=== PATIENT | male | born 1975 | race Caucasian/White ===

== ENCOUNTER 2018-10-31 19:41 | Inpatient (IN) | payer OTHER ==
[2018-10-31 19:49] VITALS: BMI 35.5
--- NOTE | 2018-10-31 21:15 | PDOC ---
History of Present Illness - General Chief Complaint: Wound Stated Complaint: Wound ON LEG Time Seen by Provider: 10/31/18 21:09 - History of Present Illness Initial Comments: 10/31/18 22:01 The patient is a 43 year old male with a history of asthma who presents for evaluation of lower extremity infection. The patient reports that he had a rash and reaction on thanksgiving with an extremely itchy rash at that time. He notes that he broke skin with the itching and since then has been having worsening redness and swelling to his bilateral lower extremities. He presented to an outside ED on 10/26/18 and was prescribed augmentin for a presumed cellulitis, however notes worsening symptoms despite antibiotic use prompting his presentation to the ED for further evaluation. He otherwise denies fevers, chills, SOB, chest pain, nausea, vomiting, abdominal pain, or changes with urination or bowel movements. Past History - Past Medical History Allergies/Adverse Reactions: Allergies Allergy/AdvReac Type Severity Reaction Status Date / Time shellfish derived Allergy Verified 10/31/18 19:49 Home Medications: Ambulatory Orders Amoxicillin/Potassium Clav [Amox-Clav 875-125 mg Tablet] 1 each PO Q12H Diphenhydramine HCl [Benadryl -] 25 mg PO Q8H PRN 10/31/18 Fluoxetine HCl [Prozac -] 20 mg PO DAILY 10/31/18 Risperidone [Risperdal] 2 mg PO HS 10/31/18 Albuterol Sulfate Inhaler - [Ventolin Hfa Inhaler -] 90 mcg IH PRN PRN 11/01/18 Fenofibrate Nanocrystallized [Fenofibrate] 145 mg PO DAILY 11/01/18 Asthma: Yes COPD: No - Surgical History Cholecystectomy: Yes (GALL STONES REMOVED) - Suicide/Smoking/Psychosocial Hx Smoking Status: No Smoking History: Never smoked Number of Cigarettes Smoked Daily: 0 Review of Systems - Review of Systems Comments:: 10/31/18 22:03 Constitutional: No fevers, chills, fatigue, malaise HEENT: No Rhinorrhea, nasal congestion, visual changes Cardiovascular: No chest pain, syncope, palpitations, lightheadedness Respiratory: No Cough, SOB, Hemoptysis, Gastrointestinal: No Abdominal pain, Nausea, Vomiting, Constipation, Diarrhea, Melena Genitourinary: No Dysuria, Frequency, Urgency, Hesitancy, Hematuria, Flank pain Musculoskeletal: No Myalgia, arthralgia Skin: Rashes, Itching, Redness, Lower extremity swelling. No bruising, pallor Neurologic: No Headache, Dizziness, Numbness, Weakness, or Tingling Psychiatric: No Hallucinations. No SI or HI *Physical Exam - Vital Signs Last Vital Signs Temp Pulse Resp BP Pulse Ox 97.6 F 99 H 18 141/74 97 10/31/18 19:45 10/31/18 19:45 10/31/18 19:45 10/31/18 19:45 10/31/18 19:45 - Physical Exam Comments: 10/31/18 22:04 General Appearance: Nourished. No Apparent Distress HEENT: No Pharyngeal Erythema, Tonsillar Exudate, Tonsillar Erythema Neck: No Cervical Lymphadenopathy Respiratory/Chest: Lungs Clear, Normal Breath Sounds. No Crackles, Rales, Rhonchi, Wheezing Cardiovascular: Regular Rhythm, Regular Rate. No Murmur, Gallops, Rubs Gastrointestinal/Abdominal: Normal Bowel Sounds, Soft. No Guarding, Rebound, Tenderness Musculoskeletal: No CVA Tenderness Extremity: Bilateral 4+ pitting edema in the lower extremities with noted erythema and skin cracking. Normal Capillary Refill Integumentary: Normal Color, Dry, Warm Neurologic: Fully Oriented, Alert, Normal Mood/Affect, Normal Response, Moderate Sedation - Procedure Monitoring Vital Signs: Procedure Monitoring Vital Signs Temperature 97.6 F 10/31/18 19:45 Pulse Rate 99 H 10/31/18 19:45 Respiratory Rate 18 10/31/18 19:45 Blood Pressure 141/74 10/31/18 19:45 O2 Sat by Pulse Oximetry (%) 97 10/31/18 19:45 ED Treatment Course - LABORATORY CBC & Chemistry Diagram: 11/01/18 06:15 11/01/18 06:15 Medical Decision Making - Medical Decision Making 10/31/18 22:04 The patient is a 43 year old male with a history of asthma who presents for evaluation of lower extremity infection. Differential includes but is not limited to: Cellulitis, Wound Infections, DVT, Infections, Metabolic Derangement. Given the patient's history and physical exam, we will obtain a cbc, cmp, lactate, blood cultures, DVT US, ekg to evaluate further. It is likely the patient's symptoms are due to a cellulitis that has failed outpatient management. We will treat the patient with clindamycin. We will continue to monitor and reassess while here in the ED. 10/31/18 23:11 CBC, CMP, lactate are unremarkable. We discussed the case with the admitting team who accepted the patient for admission. *DC/Admit/Observation/Transfer Diagnosis at time of Disposition: Cellulitis Qualifiers: Site of cellulitis: unspecified site Qualified Code(s): L03.90 - Cellulitis, unspecified - Discharge Dispostion Condition at time of disposition: Stable Decision to Admit order: Yes - Referrals - Patient Instructions - Post Discharge Activity
[2018-10-31] MEDS ORDERED: CLINDAMYCIN 600MG PREMIX IVPB 600 MG/50 ML BAG IVPB ONE ×2 (21:25→22:09)
[2018-10-31 22:29] LABS: BASO % 1.1 % (0-2.0); EOS % 5.7 % (0-4.5); HEMOGLOBIN 13.7 GM/dL (11.7-16.9); MCH 29.3 pg (25.7-33.7); MCHC 34.4 g/dl (32.0-35.9); MEAN CELL VOLUME 85.1 fl (80-96); MONO % 7.4 % (3.8-10.2); NEUT % 67.8 % (42.8-82.8); PLATELET COUNT 223 K/MM3 (134-434); RDW 14.1 % (11.9-15.9); WHITE BLOOD COUNT 7.7 K/mm3 (4.0-10.0)
--- NOTE | 2018-10-31 22:38 | PDOC ---
Attending Attestation - Resident Resident Name: Emerson Fuller - ED Attending Attestation I have performed the following: I have examined & evaluated the patient, The case was reviewed & discussed with the resident, I agree w/resident's findings & plan, Exceptions are as noted - HPI HPI: 10/31/18 22:39 43 M with h/o asthma presenting with bilateral lower extremity itching and redness. Pt states that he first noticed itching in his legs and arms about 3 weeks ago during Thanksgiving. He reports scratching it and subsequently developing redness in both legs. Pt was seen at another ED and started on augmentin for cellulitis. Pt has been taking the augmentin for 4 days and reports no improvement. Today, pt notes that his skin began to peel. Pt denies F /C. Denies lesions in his mouth, on his palms or soles. Notes that he has allergies to shellfish but has not eaten any lately. Denies any drug allergies. Is not on any other meds besides the augmentin. - Physicial Exam PE: 10/31/18 22:43 "GENERAL: Awake, alert, and fully oriented, in no acute distress. HEAD: No signs of trauma EYES: PERRLA, EOMI, sclera anicteric, conjunctiva clear ENT: Auricles normal inspection, hearing grossly normal, nares patent, oropharynx clear without exudates. Moist mucosa NECK: Nontender, no stepoffs, Normal ROM, supple, no lymphadenopathy, JVD, or masses LUNGS: Breath sounds equal, clear to auscultation bilaterally. No wheezes, and no crackles HEART: Regular rate and rhythm, normal S1 and S2, no murmurs, rubs or gallops ABDOMEN: Soft, nontender, normoactive bowel sounds. No guarding, no rebound. No masses EXTREMITIES: Normal range of motion, no edema. No clubbing or cyanosis. No cords, erythema, or tenderness NEUROLOGICAL: Cranial nerves II through XII intact. 5/5 strength and sensation in all extremities, Normal speech, normal gait, normal cerebellar function SKIN: + desquamating rash to BLE with erythema and warmth, no palmar involvement , no oral mucosal lesions - Medical Decision Making 10/31/18 22:44 43 M with BLE rash, now with desquamation. Possible contact/allergic dermatitis now with superinfection. Desquamation started over past 48 hours after pt started taking augmentin. Consider SJS, though rash is largely localized to legs. No oral mucosal or palmar lesions. Possible ?erythrodermic psoriasis. - Labs - Stop augmentin - IV clinda - Admit obs - derm consult
[2018-10-31 23:05] LABS: ALBUMIN 3.6 g/dl (3.4-5.0); ALK PHOS 116 U/L (45-117); ANION GAP 6 MMOL/L (8-16); BILIRUBIN,TOTAL 0.2 mg/dL (0.2-1); BLOOD UREA NITROGEN 18 mg/dL (7-18); CALCIUM 8.4 mg/dL (8.5-10.1); CHLORIDE 106 mmol/L (98-107); CO2 28 mmol/L (21-32); CREATININE 1.1 mg/dL (0.55-1.3); GLUCOSE,RANDOM 92 mg/dL (74-106); POTASSIUM 4.1 mmol/L (3.5-5.1); SGOT/AST 27 U/L (15-37); SGPT/ALT 41 U/L (13-61); SODIUM 140 mmol/L (136-145); TOT PROT 7.1 g/dl (6.4-8.2)
--- NOTE | 2018-11-01 00:51 | PN ---
Teaching Attending Note Name of Resident: Layla Santana ATTENDING PHYSICIAN STATEMENT I saw and evaluated the patient. I reviewed the resident's note and discussed the case with the resident. I agree with the resident's findings and plan as documented. SUBJECTIVE: Patient is a 43 year old man with remote histroy of depression, kidney stones and asthma who presents with bilateral lower extremity itching and redness. He first noticed itching in his legs and arms about 3 weeks ago during Thanksgiving. He reports scratching it and subsequently developing redness in both legs. Was seen at another ED and started on Augmentin for cellulitis. He has been taking the Augmentin for 4 days and reports no improvement. Today, he notes that his skin began to peel. He denies fever of chills, lesions in his mouth, on his palms or soles. Notes that he has allergies to shellfish but has not eaten any lately. Denies any known drug allergies. Is not on any other medications besides Augmentin. OBJECTIVE: Alert Vital Signs Period Temp Pulse Resp BP Sys/Barr Pulse Ox Last 24 Hr 97.6 F 99 18 141/74 97-97 HEENT: No Jaundice, eye redness or discharge, PERRLA, EOMI. Normocephalic, atraumatic. External ears are normal and hearing is grossly intact. No nasal discharge. Neck: Supple, nontender. No palpable adenopathy or thyromegaly. No JVD Chest: Good effort. Clear to auscultation and percussion. Heart: Regular. No S3, rub or murmur Abdomen: Not distended, soft, nontender and no HSM. No rebound or guarding. Normoactive bowel sounds. Ext: Peripheral pulses intact. Leg edema. Skin: Maculopapular rash in legs, arms and abdomen. More pronounced and desquamating in LE with erythema and warmth. No palmar involvement, no oral mucosal lesions. Neuro: Alert. Oriented x3. CN 2-12 grossly intact. Sensation grossly intact in all four extremities and DTR are symmetric. Home Medications Medication Instructions Recorded Amoxicillin/Potassium Clav 1 each PO Q12H 10/31/18 [Amox-Clav 875-125 mg Tablet] Diphenhydramine HCl [Benadryl -] 25 mg PO Q8H PRN 10/31/18 Fluoxetine HCl [Prozac -] 20 mg PO DAILY 10/31/18 Risperidone [Risperdal] 2 mg PO HS 10/31/18 Abnormal Lab Results 10/31/18 10/31/18 22:00 22:00 Eosinophils % 5.7 H D Anion Gap 6 L Calcium 8.4 L ASSESSMENT AND PLAN: 1. Cellulitis - Likely had an allergic dermatitis that is now complicated by a superinfection that failed Augmentin therapy. Etiology of allergic reaction unclear. Will get a leg doppler and treat with iv Vancomycin and consult ID and Dermatology. Counseled to discontinue any new bath soaps, body lotion, laundry detergent or alternative medicine products. 2. Obesity - Will provide patient all the necessary assistance, counseling and positive reinforcement to facilitate weight loss. Consult electrical tests supervisor. 3. DVT prophylaxis - Lovenox 40 mg SQ q 24 hours. 4. Advance directives - Full code
[2018-11-01] MEDS ORDERED: VANCOMYCIN 1,500 MG in DEXTROSE 5%-WATER - 500 ML IVPB ONE (02:00)
[2018-11-01] MEDS ORDERED: ALBUTEROL SO4 0.083% IH SOL 2.5 MG/3 ML VIAL.NEB. NEB PRN (02:07)
[2018-11-01] MEDS ORDERED: ACETAMINOPHEN 325 MG TABLET (FP) PO PRN (02:07)
--- NOTE | 2018-11-01 02:10 | HP ---
CHIEF COMPLAINT: LE Swelling + Erythema PCP: Nuvia Velasquez HISTORY OF PRESENT ILLNESS: 43 y/o M with PMhx of Asthma presents with B/L LE Swelling accompanied by erythema. Patient used a new soap while showering on giving, after which he went to sleep. He was awoken sometime later due to itching over his b/l LE. He says a rash then broke out and spread over his lower extremities, Abdomen, thorax and partly over his upper extremities. Patient mentions scratching his rash and breaking skin. Initially the rash was accompanied by some clear drainage however it has subsided. Patient has never had this before. 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 He has tried a cream of unknown name. Additionally, he has tried Augmentin for the past 4 days without any relief. Patient says the erythema and itching have worsened since onset. Denies any recent trauma, new infestations or new pets. Has not tried any new laundry detergents, new body jewelry or new clothes. No medication changes except for the cream or Augmentin. Denies any accompanying fevers, chills, chest pain, SOB, nausea, vomiting, diarrhea, constipation. ER course was notable for: (1) Clindamycin (2) Blood cx pending (3) LE DUPLEX Recent Travel: Denies PAST MEDICAL HISTORY: Asthma PAST SURGICAL HISTORY: CCY Social History: Smoking: Denies Alcohol: Denies Drugs: Denies Occupation: Disability Ambulation: Without assistance Family History: Mother: Psychiatric hx, DM, HLD, HTN Father: Asthma, Cardiac hx Allergies shellfish derived Allergy (Verified 10/31/18 19:49) HOME MEDICATIONS: Home Medications Medication Instructions Recorded Amoxicillin/Potassium Clav 1 each PO Q12H 10/31/18 [Amox-Clav 875-125 mg Tablet] Diphenhydramine HCl [Benadryl -] 25 mg PO Q8H PRN 10/31/18 Fluoxetine HCl [Prozac -] 20 mg PO DAILY 10/31/18 Risperidone [Risperdal] 2 mg PO HS 10/31/18 REVIEW OF SYSTEMS As per HPI PHYSICAL EXAMINATION Vital Signs - 24 hr 10/31/18 10/31/18 19:45 22:14 Temperature 97.6 F Pulse Rate 99 H Respiratory 18 Rate Blood Pressure 141/74 O2 Sat by Pulse 97 97 Oximetry (%) GENERAL: A&Ox3, NAD HEAD: NCAT EYES: PERRL, EOMI, No obvious occular lesions EARS, NOSE, THROAT: Oropharynx clear without exudates. Moist mucous membranes. No oral mucosa lesions NECK: No JVD LUNGS: Breath sounds equal, clear to auscultation bilaterally. No wheezes HEART: Regular rate and rhythm, normal S1 and S2 without murmur ABDOMEN: Soft, nontender, not distended, + bowel sounds, no guarding MUSCULOSKELETAL: No CVA tenderness. EXTREMITIES: 2+ pulses, No calf tenderness. 2+ pitting edema. NEUROLOGICAL: Cranial nerves II-XII intact. Normal speech. L4-S1 gross sensation intact b/l. 5/5 muscle strength to Hip Flexion, Knee flexion/extension , Dorsiflexion, Plantarflexion SKIN: Diffuse Macularpappular rash over the medial upper extremity b/l, Circumfrential lower extremity b/l. Warmth present over LE rash accompanied by erythema, scaly skin with excoriation. Laboratory Results - last 24 hr 10/31/18 10/31/18 10/31/18 22:00 22:00 22:00 WBC 7.7 RBC 4.70 Hgb 13.7 Hct 40.0 MCV 85.1 MCH 29.3 MCHC 34.4 RDW 14.1 Plt Count 223 MPV 9.0 D Absolute Neuts (auto) 5.2 Neutrophils % 67.8 Lymphocytes % 18.0 D Monocytes % 7.4 Eosinophils % 5.7 H D Basophils % 1.1 Nucleated RBC % 0 Sodium 140 Potassium 4.1 Chloride 106 Carbon Dioxide 28 Anion Gap 6 L BUN 18 Creatinine 1.1 Creat Clearance w eGFR > 60 Random Glucose 92 Lactic Acid 1.9 Calcium 8.4 L Total Bilirubin 0.2 AST 27 ALT 41 Alkaline Phosphatase 116 Total Protein 7.1 Albumin 3.6 ASSESSMENT/PLAN: 43 y/o M with PMhx of Asthma presents with B/L LE Swelling + erythema. Patient sx's have worsened since onset, and patient mentions he has not improved since starting Augmentin. #LE Swelling + Erythema -Likely due to cellulitis; Still consider allergic reaction, Less likely Contact dermatitis, DVT -Blood Cx, LE DUPLEX pending -Nasal MRSA Swab pending -Received 1 dose Clindamycin in ED -Ordered Vancomycin 1500mg Daily (15mg X 100kg) -ID (Dr. Juan) Consulted -Can Consider Dermatology consult for possible allergic dermatitis now complicated by a superimposed infection #Hx of Asthma -Currently uses an inhaler but unable to clarify name or dosage -Albuterol PRN for now; Will need Med Rec to determine home inhaler (?Ventolin) dose #FEN -PO Fluids -Lytes wnl -Regular diet #PPx -DVT: Lovenox Dispo: Admitted to Med-Surg, Will need Med Rec Visit type - Emergency Visit Emergency Visit: Yes ED Registration Date: 11/01/18 Care time: The patient presented to the Emergency Department on the above date and was hospitalized for further evaluation of their emergent condition. - New Patient This patient is new to me today: Yes Date on this admission: 11/01/18 - Critical Care Critical Care patient: No
[2018-11-01 07:10] LABS: BASO % 0.6 % (0-2.0); HEMATOCRIT 38.7 % (35.4-49); HEMOGLOBIN 13.4 GM/dL (11.7-16.9); LYMPH % 17.5 % (8-40); MCH 29.4 pg (25.7-33.7); MCHC 34.6 g/dl (32.0-35.9); MEAN CELL VOLUME 84.9 fl (80-96); MEAN PLT VOLUME 8.8 fl (7.5-11.1); MONO % 8.5 % (3.8-10.2); NEUT % 67.4 % (42.8-82.8); PLATELET COUNT 202 K/MM3 (134-434); RBC 4.56 M/mm3 (4.00-5.60); RDW 14.1 % (11.9-15.9); WHITE BLOOD COUNT 8.9 K/mm3 (4.0-10.0)
[2018-11-01 07:52] LABS: ALBUMIN 3.1 g/dl (3.4-5.0); ALK PHOS 93 U/L (45-117); ANION GAP 5 MMOL/L (8-16); BILIRUBIN,TOTAL 0.4 mg/dL (0.2-1); BLOOD UREA NITROGEN 14 mg/dL (7-18); CALCIUM 7.8 mg/dL (8.5-10.1); CHLORIDE 104 mmol/L (98-107); CO2 28 mmol/L (21-32); CREATININE 1.1 mg/dL (0.55-1.3); GLUCOSE,RANDOM 91 mg/dL (74-106); MAGNESIUM 2.2 mg/dL (1.8-2.4); PHOSPHOROUS 3.3 mg/dL (2.5-4.9); POTASSIUM 3.6 mmol/L (3.5-5.1); SGOT/AST 21 U/L (15-37); SGPT/ALT 40 U/L (13-61); SODIUM 138 mmol/L (136-145); TOT PROT 6.5 g/dl (6.4-8.2)
[2018-11-01] MEDS ORDERED: PIPERACILLIN/TAZOBACTAM 3.375 GM VIAL IVPB ONE ×2 (09:53→17:28)
[2018-11-01] MEDS ORDERED: DEXTROSE 5%-WATER - 50 ML IVPB ONE ×2 (09:53→17:29)
[2018-11-01] MEDS: PIPERACILLIN/TAZOB 3.375 GM 3.375 GM in DEXTROSE 5%-WATER - 50 ML IVPB SCH ×2 (09:57→17:41)
[2018-11-01] MEDS: ENOXAPARIN NA (PORCINE) 40 MG/0.4 ML DISP.SYRIN SQ SCH (09:58)
--- NOTE | 2018-11-01 12:00 | PN ---
Teaching Attending Note Name of Resident: Alma Kathleen ATTENDING PHYSICIAN STATEMENT I saw and evaluated the patient. I reviewed the resident's note and discussed the case with the resident. I agree with the resident's findings and plan as documented. SUBJECTIVE: No fever or chills. He feels his lower extremities are better today . he has been using a cream ( ? name) . no fever at home . He has not used any new medications. Around thanksgiving he had a generalized rash on extremities, and trunk, with no mucosal/palm/sole involvement. the uper extremities and trunk rash improved but not the legs. he was in ER few days ago and was prescribed augmenting for LE cellulites . it did not make any difference. OBJECTIVE: NAD CV: RRR, no MRG Lungs: CTAB Ext: erythema, dry scaly skin on legs and thighs. increased warmth, edema . macuopapular rash . No drainage . Skin: LE as above . dry scaly skin on trunk and upper extremities . fading macular rash . no rash on face, palms or soles. no mucosal lesions ASSESSMENT AND PLAN: 43 y/o man with h/o depression , and asthma, and nephrolithiasis who presented with presented with edema , erythema, in LE . 1- LE edema , and erythema. the patient had allergic reaction to LE with possible superimposed infection .No DVT on US - Id eval pending. will d/w him - if Abx are indicated, will discuss options - follow blood cx 2- H/o Asthma, will cont albuterol 3- Psych h/o : will confirm and continue home meds 4- DVT PX
--- NOTE | 2018-11-01 12:43 | PN ---
Physical Exam: SUBJECTIVE: Patient seen and examined at bedside. Pt denies any pain or itching at all. Rash on b/l upper extremities seem to be improving. Pt denies oral lesions, chest pain, sob, or hx of skin disease. He states symptoms started after using Dove soap on Thanksgiving, and has had this persistent rash. OBJECTIVE: Vital Signs Temperature 97.4 F L 11/01/18 10:00 Pulse Rate 86 11/01/18 10:00 Respiratory Rate 16 11/01/18 10:00 Blood Pressure 122/69 11/01/18 10:00 O2 Sat by Pulse Oximetry (%) 99 11/01/18 06:00 GENERAL: AAOx3, NAD HEENT: AT/NC. EOMI. INOCENCIA. Moist mucus membranes. NECK: No JVD LUNGS: CTA B/L HEART: RRR. Normal S1, S2. ABDOMEN: Soft, NT/ND. +BS in all 4Qs. MUSCULOSKELETAL: No CVA tenderness. EXTREMITIES: 2+ pulses, No calf tenderness. 2+ pitting edema. NEUROLOGICAL: Cranial nerves II-XII intact. Normal speech. L4-S1 gross sensation intact b/l. 5/5 muscle strength to Hip Flexion, Knee flexion/extension , Dorsiflexion, Plantarflexion SKIN: Diffuse Maculopapular rash over the medial upper extremity b/l, Circumferential lower extremity b/l. Warmth present over LE rash accompanied by erythema, scaly skin with excoriation. CBCD WBC 8.9 K/mm3 (4.0-10.0) 11/01/18 06:15 RBC 4.56 M/mm3 (4.00-5.60) 11/01/18 06:15 Hgb 13.4 GM/dL (11.7-16.9) 11/01/18 06:15 Hct 38.7 % (35.4-49) 11/01/18 06:15 MCV 84.9 fl (80-96) 11/01/18 06:15 MCHC 34.6 g/dl (32.0-35.9) 11/01/18 06:15 RDW 14.1 % (11.9-15.9) 11/01/18 06:15 Plt Count 202 K/MM3 (134-434) 11/01/18 06:15 MPV 8.8 fl (7.5-11.1) 11/01/18 06:15 CMP Sodium 138 mmol/L (136-145) 11/01/18 06:15 Potassium 3.6 mmol/L (3.5-5.1) 11/01/18 06:15 Chloride 104 mmol/L (98-107) 11/01/18 06:15 Carbon Dioxide 28 mmol/L (21-32) 11/01/18 06:15 Anion Gap 5 MMOL/L (8-16) L 11/01/18 06:15 BUN 14 mg/dL (7-18) 11/01/18 06:15 Creatinine 1.1 mg/dL (0.55-1.3) 11/01/18 06:15 Creat Clearance w eGFR > 60 (>60) 11/01/18 06:15 Calcium 7.8 mg/dL (8.5-10.1) L 11/01/18 06:15 Total Bilirubin 0.4 mg/dL (0.2-1) 11/01/18 06:15 AST 21 U/L (15-37) 11/01/18 06:15 ALT 40 U/L (13-61) 11/01/18 06:15 Alkaline Phosphatase 93 U/L (45-117) 11/01/18 06:15 Total Protein 6.5 g/dl (6.4-8.2) 11/01/18 06:15 Albumin 3.1 g/dl (3.4-5.0) L 11/01/18 06:15 Active Medications Acetaminophen (Tylenol -) 650 mg PO Q6H PRN PRN Reason: Fever Or Pain Level 1-5 Albuterol Sulfate (Ventolin 0.083% Nebulizer Soln -) 1 amp NEB Q4H PRN PRN Reason: SHORT OF BREATH/WHEEZING Enoxaparin Sodium (Lovenox -) 40 mg SQ DAILY ESTRELLA Last Admin: 11/01/18 09:58 Dose: 40 mg Vancomycin HCl 1,500 mg/ (Dextrose) 500 mls @ 250 mls/hr IVPB Q24H ESTRELLA; Protocol Piperacillin Sod/Tazobactam (Sod 3.375 gm/ Dextrose) 50 mls @ 100 mls/hr IVPB Q8H-IV ESTRELLA; Protocol Last Admin: 11/01/18 09:57 Dose: 100 mls/hr CONSULTS ID- Dr. Juan IMAGING: * Doppler LE: No evidence of DVT. ASSESSMENT/PLAN: 43M w/ pmhx of Asthma presents with B/L LE Swelling + erythema. Patient sx's have worsened since onset, and patient mentions he has not improved since starting Augmentin. #LE Swelling + Erythema; cellulitis vs. rash due to allergic reaction. -Pt seems to have improving maculopapular rash on b/l arms after given dose of Clindamycin and Vanc. This could possibly be a sign of infection as source of rash, but will d/w ID. Rash still persists on b/l LE. If cellulitis less likely as evaluated by ID, then consider derm consult for possible allergic dermatitis potentially complicated by a superimposed infection. -BCx pending -Nasal swab for MRSA pending -Doppler showed no acute DVT -Nasal MRSA Swab pending -Per ID, Zosyn 3.375 gm (started 11/01; previously given Clindamycin, Vancomycin ) #Hx of Asthma -Ventolin PRN #Hx of psychiatric illness; will verify with family psychiatric hx Cont home meds: -Risperdal 2 mg PO HS -Prozac 20 mg PO QD #FEN -PO Fluids -Lytes wnl -Regular diet #PPx -DVT: Lovenox 40 mg SQ QD dispo -cont to monitor on med-surg -meds reconciled Visit type - Emergency Visit Emergency Visit: Yes ED Registration Date: 11/01/18 Care time: The patient presented to the Emergency Department on the above date and was hospitalized for further evaluation of their emergent condition. - New Patient This patient is new to me today: Yes Date on this admission: 11/01/18 - Critical Care Critical Care patient: No
[2018-11-01] MEDS ORDERED: PT OWN MED DRAWER 7, Y5N ONE (15:55)
[2018-11-01] MEDS: FLUoxetine HCL 20 MG CAPSULE (FP) PO SCH (15:56)
--- NOTE | 2018-11-01 16:27 | EKG ---
Test Reason : Blood Pressure : / mmHG Vent. Rate : 088 BPM Atrial Rate : 088 BPM P-R Int : 144 ms QRS Dur : 100 ms QT Int : 378 ms P-R-T Axes : 066 050 037 degrees QTc Int : 457 ms NORMAL SINUS RHYTHM POSSIBLE LEFT ATRIAL ENLARGEMENT BORDERLINE ECG Confirmed by MD DEREK, SHAHANA ([id number]) on 11/01/2018 4:26:57 PM Referred By: Confirmed By:SHAHANA REED MD
--- NOTE | 2018-11-01 17:44 | CON.ID ---
Consult Consult Specialty:: infectious diseases Reason for Consultation:: b/l leg cellulitis - History of Present Illness Chief Complaint: swelling and redness of the legs History of Present Illness: 43 y/o M with PMhx of Asthma presents with B/L LE Swelling accompanied by erythema. Patient used a new soap while showering on giving, after which he went to sleep. He was awoken sometime later due to itching over his b/l LE. He says a rash then broke out and spread over his lower extremities, Abdomen, thorax and partly over his upper extremities. Patient mentions scratching his rash and breaking skin. Initially the rash was accompanied by some clear drainage however it has subsided. Patient has never had this before. He has visited his PCP's office 2x since, an [employer] [facility]. He has tried a cream of unknown name. Additionally, he has tried Augmentin for the past 4 days without any relief. Patient says the erythema and itching have worsened since onset. also multiple flakes noted on the skin family in the room - History Source History Provided By: Patient, Family Member Limitations to Obtaining History: No Limitations - Alcohol/Substance Use Hx Alcohol Use: No - Smoking History Smoking history: Never smoked Aproximately how many cigarettes per day: 0 Home Medications - Allergies Allergies/Adverse Reactions: Allergies Allergy/AdvReac Type Severity Reaction Status Date / Time shellfish derived Allergy Verified 10/31/18 19:49 - Home Medications Home Medications: Ambulatory Orders Amoxicillin/Potassium Clav [Amox-Clav 875-125 mg Tablet] 1 each PO Q12H Diphenhydramine HCl [Benadryl -] 25 mg PO Q8H PRN 10/31/18 Fluoxetine HCl [Prozac -] 20 mg PO DAILY 10/31/18 Risperidone [Risperdal] 2 mg PO HS 10/31/18 Albuterol Sulfate Inhaler - [Ventolin Hfa Inhaler -] 90 mcg IH PRN PRN 11/01/18 Fenofibrate Nanocrystallized [Fenofibrate] 145 mg PO DAILY 11/01/18 Review of Systems - Review of Systems Constitutional: reports: No Symptoms Eyes: reports: No Symptoms HENT: reports: No Symptoms Neck: reports: No Symptoms Cardiovascular: reports: No Symptoms Respiratory: reports: No Symptoms Gastrointestinal: reports: No Symptoms Genitourinary: reports: No Symptoms Musculoskeletal: reports: No Symptoms Integumentary: reports: Change in Color, Erythema Neurological: reports: No Symptoms Endocrine: reports: No Symptoms Hematology/Lymphatic: reports: No Symptoms Psychiatric: reports: No Symptoms Physical Exam Vital Signs: Vital Signs Temperature 98.3 F 11/01/18 16:46 Pulse Rate 88 11/01/18 16:46 Respiratory Rate 20 11/01/18 16:46 Blood Pressure 123/69 11/01/18 16:46 O2 Sat by Pulse Oximetry (%) 99 11/01/18 09:00 Constitutional: Yes: Well Nourished, No Distress, Calm Eyes: Yes: Conjunctiva Clear Neck: Yes: Supple, Trachea Midline Cardiovascular: Yes: Regular Rate and Rhythm Respiratory: Yes: Regular, CTA Bilaterally Gastrointestinal: Yes: Normal Bowel Sounds, Soft Musculoskeletal: Yes: WNL Extremities: Yes: Erythema, Other Edema: LLE: 2+, RLE: 2+ Neurological: Yes: Alert, Oriented Psychiatric: Yes: Alert, Oriented Labs: CBC, BMP 11/01/18 06:15 11/01/18 06:15 Imaging - Results Other: Report Reviewed, Image Reviewed Assessment/Plan edema b/l legs erythema b/l legs cellulitis asthma plan will start patient on abx work up for edema of the legs dermatology to see the patient monitor erythema of the legs patient needs to be worked up for non infectious causes aslo for the leg swelling and the rash which he has had discussed with the team
[2018-11-01] MEDS: risperiDONE 1 MG TABLET (FP) PO SCH (21:07)
[2018-11-02] MEDS ORDERED: DEXTROSE 5%-WATER - 50 ML IVPB ONE ×3 (01:34→17:41)
[2018-11-02] MEDS ORDERED: PIPERACILLIN/TAZOBACTAM 3.375 GM VIAL IVPB ONE ×3 (01:34→17:41)
[2018-11-02] MEDS: PIPERACILLIN/TAZOB 3.375 GM 3.375 GM in DEXTROSE 5%-WATER - 50 ML IVPB SCH ×3 (01:44→17:59)
[2018-11-02] MEDS ORDERED: VANCOMYCIN 1,500 MG in DEXTROSE 5%-WATER - 500 ML IVPB SCH (01:45)
--- NOTE | 2018-11-02 08:16 | PN ---
Teaching Attending Note Name of Resident: Alaina Vallejo ATTENDING PHYSICIAN STATEMENT I saw and evaluated the patient. I reviewed the resident's note and discussed the case with the resident. I agree with the resident's findings and plan as documented. SUBJECTIVE: Patient is feeling better with no acute distress, No fever or chills, no shortness of breath. As per patients improving. OBJECTIVE: Vital Signs Temperature 97.4 F L 11/02/18 06:29 Pulse Rate 67 11/02/18 06:29 Respiratory Rate 20 11/02/18 06:29 Blood Pressure 109/68 11/02/18 06:29 O2 Sat by Pulse Oximetry (%) 97 11/01/18 21:00 GENERAL: AAOx3, NAD HEENT: AT/NC. EOMI. INOCENCIA. Moist mucus membranes. NECK: No JVD, LUNGS: CTA B/L HEART: RRR. Normal S1, S2. ABDOMEN: Soft, NT/ND. +BS in all 4Qs. MUSCULOSKELETAL: No CVA tenderness. EXTREMITIES: 2+ pulses, No calf tenderness. 2+ pitting edema. NEUROLOGICAL: Cranial nerves II-XII intact. SKIN: Diffuse Maculopapular rash Lower extremities. improving. CBCD WBC 8.9 K/mm3 (4.0-10.0) 11/01/18 06:15 RBC 4.56 M/mm3 (4.00-5.60) 11/01/18 06:15 Hgb 13.4 GM/dL (11.7-16.9) 11/01/18 06:15 Hct 38.7 % (35.4-49) 11/01/18 06:15 MCV 84.9 fl (80-96) 11/01/18 06:15 MCHC 34.6 g/dl (32.0-35.9) 11/01/18 06:15 RDW 14.1 % (11.9-15.9) 11/01/18 06:15 Plt Count 202 K/MM3 (134-434) 11/01/18 06:15 MPV 8.8 fl (7.5-11.1) 11/01/18 06:15 CMP Sodium 138 mmol/L (136-145) 11/01/18 06:15 Potassium 3.6 mmol/L (3.5-5.1) 12/18/18 06:15 Chloride 104 mmol/L (98-107) 11/01/18 06:15 Carbon Dioxide 28 mmol/L (21-32) 11/01/18 06:15 Anion Gap 5 MMOL/L (8-16) L 11/01/18 06:15 BUN 14 mg/dL (7-18) 11/01/18 06:15 Creatinine 1.1 mg/dL (0.55-1.3) 11/01/18 06:15 Creat Clearance w eGFR > 60 (>60) 11/01/18 06:15 Random Glucose 91 mg/dL (74-106) 11/01/18 06:15 Calcium 7.8 mg/dL (8.5-10.1) L 11/01/18 06:15 Total Bilirubin 0.4 mg/dL (0.2-1) 11/01/18 06:15 AST 21 U/L (15-37) 11/01/18 06:15 ALT 40 U/L (13-61) 11/01/18 06:15 Alkaline Phosphatase 93 U/L (45-117) 11/01/18 06:15 Total Protein 6.5 g/dl (6.4-8.2) 11/01/18 06:15 Albumin 3.1 g/dl (3.4-5.0) L 11/01/18 06:15 Current Medications Generic Name Dose Route Start Last Admin Trade Name Freq PRN Reason Stop Dose Admin Acetaminophen 650 mg 11/01/18 02:07 Tylenol - PO Q6H PRN Fever Or Pain Level 1-5 Albuterol Sulfate 1 amp 11/01/18 02:07 Ventolin 0.083% Nebulizer Soln - NEB Q4H PRN SHORT OF BREATH/WHEEZING Enoxaparin Sodium 40 mg 11/01/18 10:00 11/01/18 09:58 Lovenox - SQ 40 mg DAILY ESTRELLA Administration Fluoxetine HCl 20 mg 11/01/18 13:45 11/01/18 15:56 Prozac - PO 20 mg DAILY ESTRELLA Administration Piperacillin Sod/Tazobactam 50 mls @ 100 mls/hr 11/01/18 10:00 11/02/18 01:44 Sod 3.375 gm/ Dextrose IVPB 100 mls/hr Q8H-IV ESTRELLA Administration Protocol Risperidone 2 mg 11/01/18 22:00 11/01/18 21:07 Risperdal - PO 2 mg HS ESTRELLA Administration Home Medications Medication Instructions Recorded Amoxicillin/Potassium Clav 1 each PO Q12H 10/31/18 [Amox-Clav 875-125 mg Tablet] Diphenhydramine HCl [Benadryl -] 25 mg PO Q8H PRN 10/31/18 Fluoxetine HCl [Prozac -] 20 mg PO DAILY 10/31/18 Risperidone [Risperdal] 2 mg PO HS 10/31/18 Albuterol Sulfate Inhaler - 90 mcg IH PRN PRN 11/01/18 [Ventolin Hfa Inhaler -] Fenofibrate Nanocrystallized 145 mg PO DAILY 11/01/18 [Fenofibrate] ASSESSMENT AND PLAN: Patient is a 43 yo male with PMHx of depression , asthma, and nephrolithiasis who presented with edema of lower extremities. #Acute extensive LE edema bl with erythema. On IV antibiotics continue, ID on the case. # H/o Asthma, will cont albuterol # Psych Hx : on Prozac and Risperidone. DVT PX : Lovenox
[2018-11-02 08:18] LABS: ANION GAP 6 MMOL/L (8-16); BLOOD UREA NITROGEN 13 mg/dL (7-18); CALCIUM 8.1 mg/dL (8.5-10.1); CHLORIDE 105 mmol/L (98-107); CO2 27 mmol/L (21-32); CREATININE 1.2 mg/dL (0.55-1.3); GLUCOSE,RANDOM 86 mg/dL (74-106); POTASSIUM 4.1 mmol/L (3.5-5.1); SODIUM 138 mmol/L (136-145)
--- NOTE | 2018-11-02 08:19 | PN ---
Physical Exam: SUBJECTIVE: Patient seen and examined at bedside. Pt admits to itching overnight on his legs, however it has resolved since. Feeling fine this morning. Denies fever/chills, raymundo/d, n/v, chest pain, sob, abd pain, urinary/ bowel symptoms. Donnie PO, no difficulty swallowing. OBJECTIVE: Vital Signs Temperature 97.4 F L 11/02/18 06:29 Pulse Rate 67 11/02/18 06:29 Respiratory Rate 20 11/02/18 06:29 Blood Pressure 109/68 11/02/18 06:29 O2 Sat by Pulse Oximetry (%) 97 11/01/18 21:00 GENERAL: AAOx3, NAD HEENT: AT/NC. EOMI. INOCENCIA. Moist mucus membranes. NECK: No JVD LUNGS: CTA B/L HEART: RRR. Normal S1, S2. ABDOMEN: Soft, NT/ND. +BS in all 4Qs. MUSCULOSKELETAL: No CVA tenderness. EXTREMITIES: 2+ pulses, No calf tenderness. 2+ pitting edema. NEUROLOGICAL: Cranial nerves II-XII intact. Normal speech. L4-S1 gross sensation intact b/l. 5/5 muscle strength to Hip Flexion, Knee flexion/extension , Dorsiflexion, Plantarflexion SKIN: Diffuse Maculopapular rash medial b/l LE. Warmth present over LE rash accompanied by erythema, scaly skin with excoriation. CBCD WBC 8.9 K/mm3 (4.0-10.0) 11/01/18 06:15 RBC 4.56 M/mm3 (4.00-5.60) 11/01/18 06:15 Hgb 13.4 GM/dL (11.7-16.9) 11/01/18 06:15 Hct 38.7 % (35.4-49) 11/01/18 06:15 MCV 84.9 fl (80-96) 11/01/18 06:15 MCHC 34.6 g/dl (32.0-35.9) 11/01/18 06:15 RDW 14.1 % (11.9-15.9) 11/01/18 06:15 Plt Count 202 K/MM3 (134-434) 11/01/18 06:15 MPV 8.8 fl (7.5-11.1) 11/01/18 06:15 CMP Sodium 138 mmol/L (136-145) 11/02/18 06:15 Potassium 4.1 mmol/L (3.5-5.1) 11/02/18 06:15 Chloride 105 mmol/L (98-107) 11/02/18 06:15 Carbon Dioxide 27 mmol/L (21-32) 11/02/18 06:15 Anion Gap 6 MMOL/L (8-16) L 11/02/18 06:15 BUN 13 mg/dL (7-18) 11/02/18 06:15 Creatinine 1.2 mg/dL (0.55-1.3) 11/02/18 06:15 Creat Clearance w eGFR > 60 (>60) 11/02/18 06:15 Calcium 8.1 mg/dL (8.5-10.1) L 11/02/18 06:15 Total Bilirubin 0.4 mg/dL (0.2-1) 11/01/18 06:15 AST 21 U/L (15-37) 11/01/18 06:15 ALT 40 U/L (13-61) 11/01/18 06:15 Alkaline Phosphatase 93 U/L (45-117) 11/01/18 06:15 Total Protein 6.5 g/dl (6.4-8.2) 11/01/18 06:15 Albumin 3.1 g/dl (3.4-5.0) L 11/01/18 06:15 Active Medications Acetaminophen (Tylenol -) 650 mg PO Q6H PRN PRN Reason: Fever Or Pain Level 1-5 Albuterol Sulfate (Ventolin 0.083% Nebulizer Soln -) 1 amp NEB Q4H PRN PRN Reason: SHORT OF BREATH/WHEEZING Enoxaparin Sodium (Lovenox -) 40 mg SQ DAILY ESTRELLA Last Admin: 11/01/18 09:58 Dose: 40 mg Fluoxetine HCl (Prozac -) 20 mg PO DAILY ESTRELLA Last Admin: 11/01/18 15:56 Dose: 20 mg Piperacillin Sod/Tazobactam (Sod 3.375 gm/ Dextrose) 50 mls @ 100 mls/hr IVPB Q8H-IV ESTRELLA; Protocol Last Admin: 11/02/18 01:44 Dose: 100 mls/hr Risperidone (Risperdal -) 2 mg PO HS ESTRELLA Last Admin: 11/01/18 21:07 Dose: 2 mg CONSULTS ID- Dr. Juan IMAGING: * Doppler LE: No evidence of DVT. ASSESSMENT/PLAN: 43M w/ pmhx of Asthma presents with B/L LE Swelling + erythema. Patient sx's have worsened since onset, and patient mentions he has not improved since starting Augmentin. #LE Swelling + Erythema; cellulitis vs. rash due to allergic reaction; ddx also includes CHF -Pt seems to have improving maculopapular rash on b/l upper and lower extremities after given IV abx. Will continue to monitor rash. -Per derm, recommended outpatient management of rash to assess for possible skin condition. If necessary, skin biopsy may be done in office after discharge. -ID recs appreciated; cont Zosyn 3.375 gm (started 11/01; previously given Clindamycin, Vancomycin) -BCx (10/31) neg x24h -MRSA screen neg -Doppler showed no acute DVT -Echo ordered to r/o CHF #Hx of Asthma -Ventolin PRN #Hx of psychiatric illness; will verify with family psychiatric hx Cont home meds: -Risperdal 2 mg PO HS -Prozac 20 mg PO QD #FEN -PO Fluids -Lytes wnl -Regular diet #PPx -DVT: Lovenox 40 mg SQ QD dispo -cont to monitor on med-surg -meds reconciled Visit type - Emergency Visit Emergency Visit: Yes ED Registration Date: 11/01/18 Care time: The patient presented to the Emergency Department on the above date and was hospitalized for further evaluation of their emergent condition. - New Patient This patient is new to me today: No - Critical Care Critical Care patient: No
[2018-11-02] MEDS ORDERED: PT OWN MED DRAWER 7, Y5N ONE (09:40)
[2018-11-02] MEDS: ENOXAPARIN NA (PORCINE) 40 MG/0.4 ML DISP.SYRIN SQ SCH (10:56)
[2018-11-02] MEDS: FLUoxetine HCL 20 MG CAPSULE (FP) PO SCH (10:56)
[2018-11-02 12:12] LABS: HEMATOCRIT 41.8 % (35.4-49); HEMOGLOBIN 14.2 GM/dL (11.7-16.9); MCH 29.1 pg (25.7-33.7); MEAN CELL VOLUME 85.7 fl (80-96); MEAN PLT VOLUME 9.3 fl (7.5-11.1); PLATELET COUNT 208 K/MM3 (134-434); RBC 4.88 M/mm3 (4.00-5.60); RDW 14.2 % (11.9-15.9); WHITE BLOOD COUNT 8.2 K/mm3 (4.0-10.0)
--- NOTE | 2018-11-02 12:34 | PN ---
Progress Note, Physician History of Present Illness: patient feels slightly better leg looks slightly better still red and swollen no other issues - Current Medication List Current Medications: Active Medications Acetaminophen (Tylenol -) 650 mg PO Q6H PRN PRN Reason: Fever Or Pain Level 1-5 Albuterol Sulfate (Ventolin 0.083% Nebulizer Soln -) 1 amp NEB Q4H PRN PRN Reason: SHORT OF BREATH/WHEEZING Enoxaparin Sodium (Lovenox -) 40 mg SQ DAILY [facility] Last Admin: 11/02/18 10:56 Dose: 40 mg Fluoxetine HCl (Prozac -) 20 mg PO DAILY ESTRELLA Last Admin: 11/02/18 10:56 Dose: 20 mg Piperacillin Sod/Tazobactam (Sod 3.375 gm/ Dextrose) 50 mls @ 100 mls/hr IVPB Q8H-IV ESTRELLA; Protocol Last Admin: 11/02/18 10:56 Dose: 100 mls/hr Risperidone (Risperdal -) 2 mg PO HS [facility] Last Admin: 11/01/18 21:07 Dose: 2 mg - Objective Vital Signs: Vital Signs Temperature 97.3 F L 11/02/18 09:29 Pulse Rate 82 11/02/18 09:29 Respiratory Rate 18 11/02/18 09:29 Blood Pressure 117/72 11/02/18 09:29 O2 Sat by Pulse Oximetry (%) 97 11/01/18 21:00 Constitutional: Yes: No Distress, Calm Cardiovascular: Yes: Regular Rate and Rhythm Respiratory: Yes: Regular, CTA Bilaterally Gastrointestinal: Yes: Normal Bowel Sounds, Soft Musculoskeletal: Yes: WNL Extremities: Yes: Erythema, Other Neurological: Yes: Alert, Oriented Psychiatric: Yes: Alert, Oriented Labs: CBC, BMP 11/02/18 06:15 11/02/18 06:15 Assessment/Plan edema b/l legs erythema b/l legs cellulitis asthma plan continue abx consider getting dermatology also i would suggest getting an mri of the legs to see if there is deep cellulitis rest as per the team if mri does not show cellulitis then would stop abx
--- NOTE | 2018-11-02 15:29 | ECHO ---
Name: SINTIA JIMENEZ Exam:Adult Echocardiogram Study Date: 11/02/2018 02:03 PM Age: 43 yrs Reason For Study: B/L PEDAL EDEMA R/O CHF Height: 66 in Weight: 213 lb BSA: 2.1 m2 MMode/2D Measurements & Calculations IVSd: 0.93 cm Ao root diam: 2.9 cm LVIDd: 5.2 cm LA dimension: 3.8 cm LVIDs: 3.2 cm LVPWd: 0.81 cm EDV(Teich): 131.2 ml ESV(Teich): 40.1 ml Doppler Measurements & Calculations MV E max jared: 72.6 cm/sec MR max jared: 453.3 cm/sec MV A max jared: 56.8 cm/sec MR max P.4 mmHg MV E/A: 1.3 MV dec time: 0.14 sec TR max jared: 198.6 cm/sec Med Peak E' Jared: 8.1 cm/sec TR max P.8 mmHg Med E/e': 9.0 Lat Peak E' Jared: 9.7 cm/sec Lat E/e': 7.4 Procedure A two-dimensional transthoracic echocardiogram with color flow and Doppler was performed. Left Ventricle The left ventricular size, thickness and function are normal. The left ventricular ejection fraction is normal. Left Ventricular Filling pattern is normal for age. The left ventricular wall motion is timothy l. Right Ventricle The right ventricle is normal in size and function. Atria Normal left and right atrial size and function. The atrial septum is aneurysmal. Mitral Valve The mitral valve is normal in structure and function. There is no mitral valve stenosis. There is mod erate mitral regurgitation. Tricuspid Valve There is mild tricuspid valve thickening. There is no tricuspid stenosis. There is Trace to mild tric uspid regurgitation. Right ventricular systolic pressure is normal. Aortic Valve The aortic valve is normal in structure and function. Hemodynamically significant valvular aortic cady nosis cannot be excluded. No aortic regurgitation is present. Pulmonic Valve The pulmonic valve is not well seen, but is grossly normal. Great Vessels The aortic root is normal size. Pericardium/Pleura There is no pericardial effusion. Interpretation Summary The left ventricular size, thickness and function are normal The left ventricular ejection fraction is normal. The left ventricular wall motion is normal. Left Ventricular Filling pattern is normal for age. There is moderate mitral regurgitation. The atrial septum is aneurysmal. There is Trace to mild tricuspid regurgitation. Right ventricular systolic pressure is normal. MD Scar Paredes 11/02/2018 03:29 PM
[2018-11-02] MEDS: risperiDONE 1 MG TABLET (FP) PO SCH (22:20)
[2018-11-03] MEDS ORDERED: DEXTROSE 5%-WATER - 50 ML IVPB ONE ×3 (00:57→18:13)
[2018-11-03] MEDS ORDERED: PIPERACILLIN/TAZOBACTAM 3.375 GM VIAL IVPB ONE ×3 (00:57→18:13)
[2018-11-03] MEDS: PIPERACILLIN/TAZOB 3.375 GM 3.375 GM in DEXTROSE 5%-WATER - 50 ML IVPB SCH ×3 (01:05→18:34)
--- NOTE | 2018-11-03 07:52 | PN ---
Physical Exam: SUBJECTIVE: Patient seen and examined at bedside. No acute events overnight. OBJECTIVE: Vital Signs Temperature 97.5 F L 11/03/18 06:28 Pulse Rate 62 11/03/18 06:28 Respiratory Rate 20 11/03/18 06:28 Blood Pressure 108/63 11/03/18 06:28 O2 Sat by Pulse Oximetry (%) 97 11/02/18 21:00 GENERAL: AAOx3, NAD. HEENT: AT/NC. EOMI. INOCENCIA. Moist mucus membranes. NECK: No JVD LUNGS: CTA B/L HEART: RRR. Normal S1, S2. ABDOMEN: Soft, NT/ND. +BS in all 4Qs. MUSCULOSKELETAL: No CVA tenderness. EXTREMITIES: 2+ pulses, No calf tenderness. 2+ pitting edema. NEUROLOGICAL: Cranial nerves II-XII intact. Normal speech. L4-S1 gross sensation intact b/l. 5/5 muscle strength to Hip Flexion, Knee flexion/extension , Dorsiflexion, Plantarflexion SKIN: Diffuse Maculopapular rash medial b/l LE, improving from previously. Warmth is improving over LE rash. +erythema, scaly skin with excoriation. Laboratory Results - last 24 hr 11/02/18 11/02/18 11/02/18 06:15 06:15 06:15 WBC 8.2 RBC 4.88 Hgb 14.2 Hct 41.8 MCV 85.7 MCH 29.1 MCHC 34.0 RDW 14.2 Plt Count 208 MPV 9.3 Sodium 138 Potassium 4.1 Chloride 105 Carbon Dioxide 27 Anion Gap 6 L BUN 13 Creatinine 1.2 Creat Clearance w eGFR > 60 Random Glucose 86 Hemoglobin A1c % 5.5 Calcium 8.1 L Active Medications Acetaminophen (Tylenol -) 650 mg PO Q6H PRN PRN Reason: Fever Or Pain Level 1-5 Albuterol Sulfate (Ventolin 0.083% Nebulizer Soln -) 1 amp NEB Q4H PRN PRN Reason: SHORT OF BREATH/WHEEZING Enoxaparin Sodium (Lovenox -) 40 mg SQ DAILY [facility] Last Admin: 11/03/18 09:41 Dose: 40 mg Fluoxetine HCl (Prozac -) 20 mg PO DAILY [facility] Last Admin: 11/03/18 09:46 Dose: 20 mg Piperacillin Sod/Tazobactam (Sod 3.375 gm/ Dextrose) 50 mls @ 100 mls/hr IVPB Q8H-IV ESTRELLA; Protocol Last Admin: 11/03/18 09:43 Dose: 100 mls/hr Multi-Ingredient Lotion (Eucerin (Large Jar) -) 1 applic TP BID PRN PRN Reason: DRY SKIN Risperidone (Risperdal -) 2 mg PO HS ESTRELLA Last Admin: 11/02/18 22:20 Dose: 2 mg ASSESSMENT/PLAN: CONSULTS ID- Dr. Juan IMAGING: * Doppler LE: No evidence of DVT. * ECHO: LV size, thickness, fxn are normal. LVEF is normal. LV wall motion is normal. LV filling pattern for age is normal. Moderate MR. Atrial septum is aneurysmal. Trace to mild TR. RV systolic pressure is normal. ASSESSMENT/PLAN: 43M w/ pmhx of Asthma presents with B/L LE Swelling + erythema. Patient sx's have worsened since onset, and patient mentions he has not improved since starting Augmentin. #LE Swelling + Erythema; cellulitis vs. rash due to allergic reaction; ddx also includes CHF -Pt seems to have improving maculopapular rash on b/l upper and lower extremities after given IV abx. Will continue to monitor rash and continue IV abx. Since skin is improving, will defer MRI for now. -Per derm, recommended outpatient management of rash to assess for possible skin condition. If necessary, skin biopsy may be done in office after discharge. -Eucerin cream PRN -ID recs appreciated; cont Zosyn 3.375 gm (started 11/01; previously given Clindamycin, Vancomycin) -BCx (10/31) neg x24h -MRSA screen neg -Doppler showed no acute DVT -Echo report noted above. #Hx of Asthma -Ventolin PRN #Hx of psychiatric illness; will verify with family psychiatric hx Cont home meds: -Risperdal 2 mg PO HS -Prozac 20 mg PO QD #FEN -PO Fluids -Lytes wnl -Regular diet #PPx -DVT: Lovenox 40 mg SQ QD dispo -cont to monitor on med-surg -meds reconciled Visit type - Emergency Visit Emergency Visit: Yes ED Registration Date: 11/01/18 Care time: The patient presented to the Emergency Department on the above date and was hospitalized for further evaluation of their emergent condition. - New Patient This patient is new to me today: No - Critical Care Critical Care patient: No
[2018-11-03 08:06] LABS: ALBUMIN 3.2 g/dl (3.4-5.0); ALK PHOS 94 U/L (45-117); ANION GAP 5 MMOL/L (8-16); BILIRUBIN,TOTAL 0.4 mg/dL (0.2-1); BLOOD UREA NITROGEN 17 mg/dL (7-18); CALCIUM 8.5 mg/dL (8.5-10.1); CHLORIDE 105 mmol/L (98-107); CO2 27 mmol/L (21-32); CREATININE 1.3 mg/dL (0.55-1.3); GLUCOSE,RANDOM 84 mg/dL (74-106); POTASSIUM 3.8 mmol/L (3.5-5.1); SGOT/AST 17 U/L (15-37); SGPT/ALT 33 U/L (13-61); SODIUM 138 mmol/L (136-145); TOT PROT 6.6 g/dl (6.4-8.2)
[2018-11-03 08:30] LABS: BASO % 0.7 % (0-2.0); EOS % 6.2 % (0-4.5); HEMATOCRIT 40.5 % (35.4-49); HEMOGLOBIN 13.9 GM/dL (11.7-16.9); LYMPH % 17.3 % (8-40); MCH 29.2 pg (25.7-33.7); MCHC 34.4 g/dl (32.0-35.9); MEAN CELL VOLUME 84.9 fl (80-96); MONO % 8.3 % (3.8-10.2); NEUT % 67.5 % (42.8-82.8); PLATELET COUNT 214 K/MM3 (134-434); RBC 4.77 M/mm3 (4.00-5.60); WHITE BLOOD COUNT 7.9 K/mm3 (4.0-10.0)
[2018-11-03] MEDS: ENOXAPARIN NA (PORCINE) 40 MG/0.4 ML DISP.SYRIN SQ SCH (09:41)
[2018-11-03] MEDS: FLUoxetine HCL 20 MG CAPSULE (FP) PO SCH (09:46)
--- NOTE | 2018-11-03 09:55 | PN ---
Teaching Attending Note Name of Resident: Alaina Vallejo ATTENDING PHYSICIAN STATEMENT I saw and evaluated the patient. I reviewed the resident's note and discussed the case with the resident. I agree with the resident's findings and plan as documented. SUBJECTIVE: Patient is feeling better with no acute distress, no shortness of breath, his lower extremities are improving and lower extremities swelling is better as well. OBJECTIVE: Vital Signs Temperature 97.6 F 11/03/18 08:10 Pulse Rate 83 11/03/18 08:10 Respiratory Rate 18 11/03/18 08:10 Blood Pressure 99/70 11/03/18 08:10 O2 Sat by Pulse Oximetry (%) 97 11/02/18 21:00 GENERAL: AAOx3, NAD HEENT: AT/NC. EOMI. INOCENCIA. Moist mucus membranes. NECK: No JVD, LUNGS: CTA B/L HEART: RRR. Normal S1, S2. ABDOMEN: Soft, NT/ND. +BS in all 4Qs. MUSCULOSKELETAL: No CVA tenderness. EXTREMITIES: 2+ pulses, No calf tenderness. 2+ pitting edema. NEUROLOGICAL: Cranial nerves II-XII intact. SKIN: Diffuse Maculopapular rash Lower extremities. improving. CBCD WBC 7.9 K/mm3 (4.0-10.0) 11/03/18 06:30 RBC 4.77 M/mm3 (4.00-5.60) 11/03/18 06:30 Hgb 13.9 GM/dL (11.7-16.9) 11/03/18 06:30 Hct 40.5 % (35.4-49) 11/03/18 06:30 MCV 84.9 fl (80-96) 11/03/18 06:30 MCHC 34.4 g/dl (32.0-35.9) 11/03/18 06:30 RDW 14.0 % (11.9-15.9) 11/03/18 06:30 Plt Count 214 K/MM3 (134-434) 11/03/18 06:30 MPV 9.0 fl (7.5-11.1) 11/03/18 06:30 CMP Sodium 138 mmol/L (136-145) 11/03/18 06:30 Potassium 3.8 mmol/L (3.5-5.1) 11/03/18 06:30 Chloride 105 mmol/L (98-107) 11/03/18 06:30 Carbon Dioxide 27 mmol/L (21-32) 11/03/18 06:30 Anion Gap 5 MMOL/L (8-16) L 11/03/18 06:30 BUN 17 mg/dL (7-18) 11/03/18 06:30 Creatinine 1.3 mg/dL (0.55-1.3) 11/03/18 06:30 Creat Clearance w eGFR > 60 (>60) 11/03/18 06:30 Random Glucose 84 mg/dL (74-106) 11/03/18 06:30 Calcium 8.5 mg/dL (8.5-10.1) 11/03/18 06:30 Total Bilirubin 0.4 mg/dL (0.2-1) 11/03/18 06:30 AST 17 U/L (15-37) 11/03/18 06:30 ALT 33 U/L (13-61) 11/03/18 06:30 Alkaline Phosphatase 94 U/L (45-117) 11/03/18 06:30 Total Protein 6.6 g/dl (6.4-8.2) 11/03/18 06:30 Albumin 3.2 g/dl (3.4-5.0) L 11/03/18 06:30 Current Medications Generic Name Dose Route Start Last Admin Trade Name Freq PRN Reason Stop Dose Admin Acetaminophen 650 mg 11/01/18 02:07 Tylenol - PO Q6H PRN Fever Or Pain Level 1-5 Albuterol Sulfate 1 amp 11/01/18 02:07 Ventolin 0.083% Nebulizer Soln - NEB Q4H PRN SHORT OF BREATH/WHEEZING Enoxaparin Sodium 40 mg 11/01/18 10:00 11/03/18 09:41 Lovenox - SQ 40 mg DAILY ESTRELLA Administration Fluoxetine HCl 20 mg 11/01/18 13:45 11/03/18 09:46 Prozac - PO 20 mg DAILY ESTRELLA Administration Piperacillin Sod/Tazobactam 50 mls @ 100 mls/hr 11/01/18 10:00 11/03/18 09:43 Sod 3.375 gm/ Dextrose IVPB 100 mls/hr Q8H-IV ESTRELLA Administration Protocol Risperidone 2 mg 11/01/18 22:00 11/02/18 22:20 Risperdal - PO 2 mg HS ESTRELLA Administration Home Medications Medication Instructions Recorded Amoxicillin/Potassium Clav 1 each PO Q12H 10/31/18 [Amox-Clav 875-125 mg Tablet] Diphenhydramine HCl [Benadryl -] 25 mg PO Q8H PRN 10/31/18 Fluoxetine HCl [Prozac -] 20 mg PO DAILY 10/31/18 Risperidone [Risperdal] 2 mg PO HS 10/31/18 Albuterol Sulfate Inhaler - 90 mcg IH PRN PRN 11/01/18 [Ventolin Hfa Inhaler -] Fenofibrate Nanocrystallized 145 mg PO DAILY 11/01/18 [Fenofibrate] ASSESSMENT AND PLAN: Patient is a 43 yo male with PMHx of depression , asthma, and nephrolithiasis who presented with edema of lower extremities. #Acute extensive bl LE edema with erythema. improving, On IV antibiotic, Zosyn continue, ID on the case. Discussed with ID since lower extremities are improving no need for MRI for now. # H/o Asthma, will continue albuterol # Psych Hx : on Prozac and Risperidone. DVT PX : Lovenox
[2018-11-03] MEDS ORDERED: MINERAL OIL/PETROLAT/WATER TOPICAL CREAM 454 GM JAR TP PRN (11:38)
--- NOTE | 2018-11-03 13:29 | PN ---
Progress Note, Physician History of Present Illness: cellulitis improving edema improved - Current Medication List Current Medications: Active Medications Acetaminophen (Tylenol -) 650 mg PO Q6H PRN PRN Reason: Fever Or Pain Level 1-5 Albuterol Sulfate (Ventolin 0.083% Nebulizer Soln -) 1 amp NEB Q4H PRN PRN Reason: SHORT OF BREATH/WHEEZING Enoxaparin Sodium (Lovenox -) 40 mg SQ DAILY [facility] Last Admin: 11/03/18 09:41 Dose: 40 mg Fluoxetine HCl (Prozac -) 20 mg PO DAILY [facility] Last Admin: 11/03/18 09:46 Dose: 20 mg Piperacillin Sod/Tazobactam (Sod 3.375 gm/ Dextrose) 50 mls @ 100 mls/hr IVPB Q8H-IV [facility]; Protocol Last Admin: 11/03/18 09:43 Dose: 100 mls/hr Multi-Ingredient Lotion (Eucerin (Large Jar) -) 1 applic TP BID PRN PRN Reason: DRY SKIN Risperidone (Risperdal -) 2 mg PO HS [facility] Last Admin: 11/02/18 22:20 Dose: 2 mg - Objective Vital Signs: Vital Signs Temperature 97.6 F 11/03/18 08:10 Pulse Rate 83 11/03/18 08:10 Respiratory Rate 18 11/03/18 08:10 Blood Pressure 99/70 11/03/18 08:10 O2 Sat by Pulse Oximetry (%) 97 11/02/18 21:00 Constitutional: Yes: No Distress, Calm Cardiovascular: Yes: Regular Rate and Rhythm Respiratory: Yes: Regular, CTA Bilaterally Gastrointestinal: Yes: Normal Bowel Sounds, Soft Musculoskeletal: Yes: WNL Extremities: Yes: WNL Neurological: Yes: Alert, Oriented Psychiatric: Yes: Alert, Oriented Labs: CBC, BMP 11/03/18 06:30 11/03/18 06:30 Assessment/Plan edema b/l legs erythema b/l legs cellulitis asthma plan continue abx patients cellulitis improving patients need imaging studies rest as per the team
[2018-11-03] MEDS ORDERED: ALBUTEROL SO4 8 GM HFA INHALER IH PRN (17:08)
[2018-11-03] MEDS: risperiDONE 1 MG TABLET (FP) PO SCH (21:24)
[2018-11-04] MEDS ORDERED: PIPERACILLIN/TAZOBACTAM 3.375 GM VIAL IVPB ONE ×3 (00:55→17:37)
[2018-11-04] MEDS ORDERED: DEXTROSE 5%-WATER - 50 ML IVPB ONE ×3 (00:55→17:37)
[2018-11-04] MEDS: PIPERACILLIN/TAZOB 3.375 GM 3.375 GM in DEXTROSE 5%-WATER - 50 ML IVPB SCH ×3 (01:19→17:50)
[2018-11-04 07:35] LABS: BASO % 0.5 % (0-2.0); EOS % 5.7 % (0-4.5); HEMATOCRIT 41.1 % (35.4-49); HEMOGLOBIN 14.1 GM/dL (11.7-16.9); LYMPH % 18.6 % (8-40); MCH 29.1 pg (25.7-33.7); MCHC 34.4 g/dl (32.0-35.9); MEAN CELL VOLUME 84.7 fl (80-96); MEAN PLT VOLUME 8.6 fl (7.5-11.1); MONO % 8.6 % (3.8-10.2); NEUT % 66.6 % (42.8-82.8); PLATELET COUNT 226 K/MM3 (134-434); RBC 4.85 M/mm3 (4.00-5.60); RDW 13.8 % (11.9-15.9)
[2018-11-04 08:28] LABS: ANION GAP 8 MMOL/L (8-16); BLOOD UREA NITROGEN 16 mg/dL (7-18); CHLORIDE 104 mmol/L (98-107); CO2 27 mmol/L (21-32); CREATININE 1.2 mg/dL (0.55-1.3); GLUCOSE,RANDOM 85 mg/dL (74-106); POTASSIUM 3.8 mmol/L (3.5-5.1); SODIUM 139 mmol/L (136-145)
[2018-11-04] MEDS ORDERED: PT OWN MED DRAWER 7, Y5N ONE (09:31)
[2018-11-04] MEDS: FLUoxetine HCL 20 MG CAPSULE (FP) PO SCH (09:39)
[2018-11-04] MEDS: ENOXAPARIN NA (PORCINE) 40 MG/0.4 ML DISP.SYRIN SQ SCH (09:39)
--- NOTE | 2018-11-04 13:34 | PN ---
Progress Note, Physician History of Present Illness: patients swelling and edema has erythema have decreased still redness present edema has decreased - Current Medication List Current Medications: Active Medications Acetaminophen (Tylenol -) 650 mg PO Q6H PRN PRN Reason: Fever Or Pain Level 1-5 Albuterol Sulfate (Ventolin Hfa Inhaler -) 2 puff IH Q4H PRN PRN Reason: SHORT OF BREATH/WHEEZING Enoxaparin Sodium (Lovenox -) 40 mg SQ DAILY [facility] Last Admin: 11/04/18 09:39 Dose: 40 mg Fluoxetine HCl (Prozac -) 20 mg PO DAILY [facility] Last Admin: 11/04/18 09:39 Dose: 20 mg Piperacillin Sod/Tazobactam (Sod 3.375 gm/ Dextrose) 50 mls @ 100 mls/hr IVPB Q8H-IV [facility]; Protocol Last Admin: 11/04/18 09:38 Dose: 100 mls/hr Multi-Ingredient Lotion (Eucerin (Large Jar) -) 1 applic TP BID PRN PRN Reason: DRY SKIN Last Admin: 11/03/18 18:35 Dose: 1 applic Risperidone (Risperdal -) 2 mg PO HS [facility] Last Admin: 11/03/18 21:24 Dose: 2 mg - Objective Vital Signs: Vital Signs Temperature 97.6 F 11/04/18 04:00 Pulse Rate 73 11/04/18 04:00 Respiratory Rate 20 11/04/18 04:00 Blood Pressure 107/52 L 11/04/18 04:00 O2 Sat by Pulse Oximetry (%) 95 11/03/18 20:00 Constitutional: Yes: No Distress, Calm Cardiovascular: Yes: Regular Rate and Rhythm Respiratory: Yes: Regular, CTA Bilaterally Gastrointestinal: Yes: Normal Bowel Sounds, Soft Musculoskeletal: Yes: Other Extremities: Yes: Erythema Neurological: Yes: Alert, Oriented Psychiatric: Yes: Alert, Oriented Labs: CBC, BMP 11/04/18 07:00 11/04/18 07:00 Assessment/Plan edema b/l legs erythema b/l legs cellulitis asthma plan continue current mgmt will consider to switching to oral tomorrow patient to see derm monitor the edema will d/w the team
[2018-11-04] MEDS: RANITIDINE HCL 150 MG TABLET (FP) PO SCH (15:05)
[2018-11-04] MEDS: LORATADINE 10 MG TABLET PO SCH (15:06)
--- NOTE | 2018-11-04 17:19 | PN ---
Teaching Attending Note Name of Resident: Alaina Vallejo ATTENDING PHYSICIAN STATEMENT I saw and evaluated the patient. I reviewed the resident's note and discussed the case with the resident. I agree with the resident's findings and plan as documented. SUBJECTIVE: Patient's legs are improving. OBJECTIVE: Vital Signs Temperature 98.5 F 11/04/18 15:31 Pulse Rate 90 11/04/18 15:31 Respiratory Rate 20 11/04/18 15:31 Blood Pressure 118/55 L 11/04/18 15:31 O2 Sat by Pulse Oximetry (%) 98 11/04/18 09:00 GENERAL: AAOx3, NAD HEENT: AT/NC. EOMI. INOCENCIA. Moist mucus membranes. NECK: No JVD, LUNGS: CTA B/L HEART: RRR. Normal S1, S2. ABDOMEN: Soft, NT/ND. +BS in all 4Qs. MUSCULOSKELETAL: No CVA tenderness. EXTREMITIES: 2+ pulses, No calf tenderness. 2+ pitting edema. NEUROLOGICAL: Cranial nerves II-XII intact. SKIN: Diffuse Maculopapular rash Lower extremities. improving. CBCD WBC 7.0 K/mm3 (4.0-10.0) 11/04/18 07:00 RBC 4.85 M/mm3 (4.00-5.60) 11/04/18 07:00 Hgb 14.1 GM/dL (11.7-16.9) 11/04/18 07:00 Hct 41.1 % (35.4-49) 11/04/18 07:00 MCV 84.7 fl (80-96) 11/04/18 07:00 MCHC 34.4 g/dl (32.0-35.9) 11/04/18 07:00 RDW 13.8 % (11.9-15.9) 11/04/18 07:00 Plt Count 226 K/MM3 (134-434) 11/04/18 07:00 MPV 8.6 fl (7.5-11.1) 11/04/18 07:00 CMP Sodium 139 mmol/L (136-145) 11/04/18 07:00 Potassium 3.8 mmol/L (3.5-5.1) 11/04/18 07:00 Chloride 104 mmol/L (98-107) 11/04/18 07:00 Carbon Dioxide 27 mmol/L (21-32) 11/04/18 07:00 Anion Gap 8 MMOL/L (8-16) 11/04/18 07:00 BUN 16 mg/dL (7-18) 11/04/18 07:00 Creatinine 1.2 mg/dL (0.55-1.3) 11/04/18 07:00 Creat Clearance w eGFR > 60 (>60) 11/04/18 07:00 Random Glucose 85 mg/dL (74-106) 11/04/18 07:00 Calcium 9.0 mg/dL (8.5-10.1) 11/04/18 07:00 Total Bilirubin 0.4 mg/dL (0.2-1) 11/03/18 06:30 AST 17 U/L (15-37) 11/03/18 06:30 ALT 33 U/L (13-61) 11/03/18 06:30 Alkaline Phosphatase 94 U/L (45-117) 11/03/18 06:30 Total Protein 6.6 g/dl (6.4-8.2) 11/03/18 06:30 Albumin 3.2 g/dl (3.4-5.0) L 11/03/18 06:30 Current Medications Generic Name Dose Route Start Last Admin Trade Name Freq PRN Reason Stop Dose Admin Acetaminophen 650 mg 11/01/18 02:07 Tylenol - PO Q6H PRN Fever Or Pain Level 1-5 Albuterol Sulfate 2 puff 11/03/18 17:08 Ventolin Hfa Inhaler - IH Q4H PRN SHORT OF BREATH/WHEEZING Enoxaparin Sodium 40 mg 11/01/18 10:00 11/04/18 09:39 Lovenox - SQ 40 mg DAILY [facility] Administration Fluoxetine HCl 20 mg 11/01/18 13:45 11/04/18 09:39 Prozac - PO 20 mg DAILY [facility] Administration Piperacillin Sod/Tazobactam 50 mls @ 100 mls/hr 11/01/18 10:00 11/04/18 09:38 Sod 3.375 gm/ Dextrose IVPB 100 mls/hr Q8H-IV [facility] Administration Protocol Loratadine 10 mg 11/04/18 14:15 11/04/18 15:06 Claritin - PO 10 mg DAILY [facility] Administration Multi-Ingredient Lotion 1 applic 11/03/18 11:38 11/03/18 18:35 Eucerin (Large Jar) - TP 1 applic BID PRN Administration DRY SKIN Ranitidine HCl 150 mg 11/04/18 14:15 11/04/18 15:05 Zantac - PO 150 mg DAILY [facility] Administration Risperidone 2 mg 11/01/18 22:00 11/03/18 21:24 Risperdal - PO 2 mg HS [facility] Administration Home Medications Medication Instructions Recorded Amoxicillin/Potassium Clav 1 each PO Q12H 10/31/18 [Amox-Clav 875-125 mg Tablet] Diphenhydramine HCl [Benadryl -] 25 mg PO Q8H PRN 10/31/18 Fluoxetine HCl [Prozac -] 20 mg PO DAILY 10/31/18 Risperidone [Risperdal] 2 mg PO HS 10/31/18 Albuterol Sulfate Inhaler - 90 mcg IH PRN PRN 11/01/18 [Ventolin Hfa Inhaler -] Fenofibrate Nanocrystallized 145 mg PO DAILY 11/01/18 [Fenofibrate] ASSESSMENT AND PLAN: Patient is a 43 yo male with PMHx of depression , asthma, and nephrolithiasis who presented with edema of lower extremities. #Acute extensive bl LE edema with erythema continues to improve, On IV antibiotic, Zosyn continue, ID on the case. Discussed with ID since lower extremities are improving no need for MRI for now. will add Claritin to his regimen. # H/o Asthma, will continue albuterol # Psych Hx : on Prozac and Risperidone. DVT PX : Lovenox
--- NOTE | 2018-11-04 17:58 | PN ---
Physical Exam: SUBJECTIVE: Patient seen and examined OBJECTIVE: Vital Signs Temperature 98.5 F 11/04/18 15:31 Pulse Rate 90 11/04/18 15:31 Respiratory Rate 20 11/04/18 15:31 Blood Pressure 118/55 L 11/04/18 15:31 O2 Sat by Pulse Oximetry (%) 98 11/04/18 09:00 GENERAL: AAOx3, NAD. HEENT: AT/NC. EOMI. INOCENCIA. Moist mucus membranes. NECK: No JVD LUNGS: CTA B/L HEART: RRR. Normal S1, S2. ABDOMEN: Soft, NT/ND. +BS in all 4Qs. MUSCULOSKELETAL: No CVA tenderness. EXTREMITIES: 2+ pulses, No calf tenderness. 2+ pitting edema. NEUROLOGICAL: Cranial nerves II-XII intact. Normal speech. L4-S1 gross sensation intact b/l. 5/5 muscle strength to Hip Flexion, Knee flexion/extension , Dorsiflexion, Plantarflexion SKIN: Diffuse Maculopapular rash medial b/l LE, improving from previously. Warmth is improving over LE rash. +erythema, scaly skin with excoriation. CBCD WBC 7.0 K/mm3 (4.0-10.0) 11/04/18 07:00 RBC 4.85 M/mm3 (4.00-5.60) 11/04/18 07:00 Hgb 14.1 GM/dL (11.7-16.9) 11/04/18 07:00 Hct 41.1 % (35.4-49) 11/04/18 07:00 MCV 84.7 fl (80-96) 11/04/18 07:00 MCHC 34.4 g/dl (32.0-35.9) 11/04/18 07:00 RDW 13.8 % (11.9-15.9) 11/04/18 07:00 Plt Count 226 K/MM3 (134-434) 11/04/18 07:00 MPV 8.6 fl (7.5-11.1) 11/04/18 07:00 CMP Sodium 139 mmol/L (136-145) 11/04/18 07:00 Potassium 3.8 mmol/L (3.5-5.1) 11/04/18 07:00 Chloride 104 mmol/L (98-107) 11/04/18 07:00 Carbon Dioxide 27 mmol/L (21-32) 11/04/18 07:00 Anion Gap 8 MMOL/L (8-16) 11/04/18 07:00 BUN 16 mg/dL (7-18) 11/04/18 07:00 Creatinine 1.2 mg/dL (0.55-1.3) 11/04/18 07:00 Creat Clearance w eGFR > 60 (>60) 11/04/18 07:00 Calcium 9.0 mg/dL (8.5-10.1) 11/04/18 07:00 Total Bilirubin 0.4 mg/dL (0.2-1) 11/03/18 06:30 AST 17 U/L (15-37) 11/03/18 06:30 ALT 33 U/L (13-61) 11/03/18 06:30 Alkaline Phosphatase 94 U/L (45-117) 11/03/18 06:30 Total Protein 6.6 g/dl (6.4-8.2) 11/03/18 06:30 Albumin 3.2 g/dl (3.4-5.0) L 11/03/18 06:30 Active Medications Acetaminophen (Tylenol -) 650 mg PO Q6H PRN PRN Reason: Fever Or Pain Level 1-5 Albuterol Sulfate (Ventolin Hfa Inhaler -) 2 puff IH Q4H PRN PRN Reason: SHORT OF BREATH/WHEEZING Enoxaparin Sodium (Lovenox -) 40 mg SQ DAILY [facility] Last Admin: 11/04/18 09:39 Dose: 40 mg Fluoxetine HCl (Prozac -) 20 mg PO DAILY [facility] Last Admin: 11/04/18 09:39 Dose: 20 mg Piperacillin Sod/Tazobactam (Sod 3.375 gm/ Dextrose) 50 mls @ 100 mls/hr IVPB Q8H-IV [facility]; Protocol Last Admin: 11/04/18 17:50 Dose: 100 mls/hr Loratadine (Claritin -) 10 mg PO DAILY [facility] Last Admin: 11/04/18 15:06 Dose: 10 mg Multi-Ingredient Lotion (Eucerin (Large Jar) -) 1 applic TP BID PRN PRN Reason: DRY SKIN Last Admin: 11/03/18 18:35 Dose: 1 applic Ranitidine HCl (Zantac -) 150 mg PO DAILY [facility] Last Admin: 11/04/18 15:05 Dose: 150 mg Risperidone (Risperdal -) 2 mg PO HS [facility] Last Admin: 11/03/18 21:24 Dose: 2 mg CONSULTS ID- Dr. Juan IMAGING: * Doppler LE: No evidence of DVT. * ECHO: LV size, thickness, fxn are normal. LVEF is normal. LV wall motion is normal. LV filling pattern for age is normal. Moderate MR. Atrial septum is aneurysmal. Trace to mild TR. RV systolic pressure is normal. ASSESSMENT/PLAN: 43M w/ pmhx of Asthma presents with B/L LE Swelling + erythema. Patient sx's have worsened since onset, and patient mentions he has not improved since starting Augmentin. #LE Swelling + Erythema; cellulitis vs. rash due to allergic reaction; ddx also includes CHF -Pt seems to have improving maculopapular rash on b/l upper and lower extremities after given IV abx. Will continue to monitor rash and continue IV abx. Since skin is improving, will defer MRI for now. -Per derm, recommended outpatient management of rash to assess for possible skin condition. If necessary, skin biopsy may be done in office after discharge. -Eucerin cream PRN -ID recs appreciated; cont Zosyn 3.375 gm (started 11/01; previously given Clindamycin, Vancomycin); may switch to PO tomorrow -BCx (10/31) neg x24h -MRSA screen neg -Doppler showed no acute DVT -Echo report noted above. #Hx of Asthma -Ventolin PRN #Hx of psychiatric illness; will verify with family psychiatric hx Cont home meds: -Risperdal 2 mg PO HS -Prozac 20 mg PO QD #FEN -PO Fluids -Lytes wnl -Regular diet #PPx -DVT: Lovenox 40 mg SQ QD dispo -cont to monitor on med-surg -meds reconciled Visit type - Emergency Visit Emergency Visit: Yes ED Registration Date: 11/01/18 Care time: The patient presented to the Emergency Department on the above date and was hospitalized for further evaluation of their emergent condition. - New Patient This patient is new to me today: No - Critical Care Critical Care patient: No
[2018-11-04] MEDS: risperiDONE 1 MG TABLET (FP) PO SCH (21:02)
[2018-11-05] MEDS ORDERED: DEXTROSE 5%-WATER - 50 ML IVPB ONE ×3 (01:02→17:27)
[2018-11-05] MEDS ORDERED: PIPERACILLIN/TAZOBACTAM 3.375 GM VIAL IVPB ONE ×3 (01:02→17:27)
[2018-11-05] MEDS: PIPERACILLIN/TAZOB 3.375 GM 3.375 GM in DEXTROSE 5%-WATER - 50 ML IVPB SCH ×3 (01:42→18:10)
[2018-11-05] MEDS: ENOXAPARIN NA (PORCINE) 40 MG/0.4 ML DISP.SYRIN SQ SCH (10:05)
[2018-11-05] MEDS: RANITIDINE HCL 150 MG TABLET (FP) PO SCH (10:05)
[2018-11-05] MEDS: LORATADINE 10 MG TABLET PO SCH (10:05)
[2018-11-05] MEDS: FLUoxetine HCL 20 MG CAPSULE (FP) PO SCH (11:21)
--- NOTE | 2018-11-05 15:34 | PN ---
Progress Note, Physician History of Present Illness: Pt seen and examined, notes reviewed. Pt reports less pain in LE b/l, remains afebrile. Has no specific complaints. - Current Medication List Current Medications: Active Medications Acetaminophen (Tylenol -) 650 mg PO Q6H PRN PRN Reason: Fever Or Pain Level 1-5 Albuterol Sulfate (Ventolin Hfa Inhaler -) 2 puff IH Q4H PRN PRN Reason: SHORT OF BREATH/WHEEZING Enoxaparin Sodium (Lovenox -) 40 mg SQ DAILY [facility] Last Admin: 11/05/18 10:05 Dose: 40 mg Fluoxetine HCl (Prozac -) 20 mg PO DAILY [facility] Last Admin: 11/05/18 11:21 Dose: 20 mg Piperacillin Sod/Tazobactam (Sod 3.375 gm/ Dextrose) 50 mls @ 100 mls/hr IVPB Q8H-IV [facility]; Protocol Last Admin: 11/05/18 10:06 Dose: 100 mls/hr Loratadine (Claritin -) 10 mg PO DAILY [facility] Last Admin: 11/05/18 10:05 Dose: 10 mg Multi-Ingredient Lotion (Eucerin (Large Jar) -) 1 applic TP BID PRN PRN Reason: DRY SKIN Last Admin: 11/03/18 18:35 Dose: 1 applic Ranitidine HCl (Zantac -) 150 mg PO DAILY [facility] Last Admin: 11/05/18 10:05 Dose: 150 mg Risperidone (Risperdal -) 2 mg PO HS [facility] Last Admin: 11/04/18 21:02 Dose: 2 mg - Objective Vital Signs: Vital Signs Temperature 98.1 F 11/05/18 14:36 Pulse Rate 87 11/05/18 14:36 Respiratory Rate 18 11/05/18 14:36 Blood Pressure 126/69 11/05/18 14:36 O2 Sat by Pulse Oximetry (%) 97 11/04/18 21:00 Constitutional: Yes: No Distress Cardiovascular: Yes: Regular Rate and Rhythm Respiratory: Yes: Regular Gastrointestinal: Yes: Normal Bowel Sounds, Soft Extremities: Yes: Erythema Integumentary: Yes: Erythema (b/l edema improving, +erythema (still present but decreased), exfoliative) Neurological: Yes: Alert Labs: CBC, BMP 11/04/18 07:00 11/04/18 07:00 Problem List - Problems (1) Cellulitis Code(s): L03.90 - CELLULITIS, UNSPECIFIED Qualifiers: Site of cellulitis: unspecified site Qualified Code(s): L03.90 - Cellulitis , unspecified Assessment/Plan b/l LE cellulitis Rash suspected allergic reaction -- edema/erythema improving slowly but still with erythema -- if improves will switch to oral antibiotics -- consider dermatology/allergy evaluation as outpatient
--- NOTE | 2018-11-05 16:53 | PN ---
Progress Note (short form) - Note Progress Note: Patient is feeling better with no acute distress. lower extremities are improving Vital Signs Temperature 98.1 F 11/05/18 14:36 Pulse Rate 87 11/05/18 14:36 Respiratory Rate 18 11/05/18 14:36 Blood Pressure 126/69 11/05/18 14:36 O2 Sat by Pulse Oximetry (%) 97 11/05/18 09:00 GENERAL: AAOx3, NAD HEENT: AT/NC. EOMI. INOCENCIA. Moist mucus membranes. NECK: No JVD, LUNGS: CTA B/L CHEST: CTA BL HEART: RRR. Normal S1, S2. ABDOMEN: Soft, NT/ND. positive for BS. MUSCULOSKELETAL: No CVA tenderness. EXTREMITIES: 2+ pulses, No calf tenderness. 2+ pitting edema. NEUROLOGICAL: Cranial nerves II-XII intact. SKIN: Diffuse Maculopapular rash Lower extremities. improving. CBCD WBC 7.0 K/mm3 (4.0-10.0) 11/04/18 07:00 RBC 4.85 M/mm3 (4.00-5.60) 11/04/18 07:00 Hgb 14.1 GM/dL (11.7-16.9) 11/04/18 07:00 Hct 41.1 % (35.4-49) 11/04/18 07:00 MCV 84.7 fl (80-96) 11/04/18 07:00 MCHC 34.4 g/dl (32.0-35.9) 11/04/18 07:00 RDW 13.8 % (11.9-15.9) 11/04/18 07:00 Plt Count 226 K/MM3 (134-434) 11/04/18 07:00 MPV 8.6 fl (7.5-11.1) 11/04/18 07:00 CMP Sodium 139 mmol/L (136-145) 11/04/18 07:00 Potassium 3.8 mmol/L (3.5-5.1) 11/04/18 07:00 Chloride 104 mmol/L (98-107) 11/04/18 07:00 Carbon Dioxide 27 mmol/L (21-32) 11/04/18 07:00 Anion Gap 8 MMOL/L (8-16) 11/04/18 07:00 BUN 16 mg/dL (7-18) 11/04/18 07:00 Creatinine 1.2 mg/dL (0.55-1.3) 11/04/18 07:00 Creat Clearance w eGFR > 60 (>60) 11/04/18 07:00 Random Glucose 85 mg/dL (74-106) 11/04/18 07:00 Calcium 9.0 mg/dL (8.5-10.1) 11/04/18 07:00 Total Bilirubin 0.4 mg/dL (0.2-1) 11/03/18 06:30 AST 17 U/L (15-37) 11/03/18 06:30 ALT 33 U/L (13-61) 11/03/18 06:30 Alkaline Phosphatase 94 U/L (45-117) 11/03/18 06:30 Total Protein 6.6 g/dl (6.4-8.2) 11/03/18 06:30 Albumin 3.2 g/dl (3.4-5.0) L 11/03/18 06:30 Current Medications Generic Name Dose Route Start Last Admin Trade Name Freq PRN Reason Stop Dose Admin Acetaminophen 650 mg 11/01/18 02:07 Tylenol - PO Q6H PRN Fever Or Pain Level 1-5 Albuterol Sulfate 2 puff 11/03/18 17:08 Ventolin Hfa Inhaler - IH Q4H PRN SHORT OF BREATH/WHEEZING Enoxaparin Sodium 40 mg 11/01/18 10:00 11/05/18 10:05 Lovenox - SQ 40 mg DAILY [facility] Administration Fluoxetine HCl 20 mg 11/01/18 13:45 11/05/18 11:21 Prozac - PO 20 mg DAILY [facility] Administration Piperacillin Sod/Tazobactam 50 mls @ 100 mls/hr 11/01/18 10:00 11/05/18 10:06 Sod 3.375 gm/ Dextrose IVPB 100 mls/hr Q8H-IV [facility] Administration Protocol Loratadine 10 mg 11/04/18 14:15 11/05/18 10:05 Claritin - PO 10 mg DAILY [facility] Administration Multi-Ingredient Lotion 1 applic 11/03/18 11:38 11/03/18 18:35 Eucerin (Large Jar) - TP 1 applic BID PRN Administration DRY SKIN Ranitidine HCl 150 mg 11/04/18 14:15 11/05/18 10:05 Zantac - PO 150 mg DAILY [facility] Administration Risperidone 2 mg 11/01/18 22:00 11/04/18 21:02 Risperdal - PO 2 mg HS [facility] Administration Home Medications Medication Instructions Recorded Amoxicillin/Potassium Clav 1 each PO Q12H 10/31/18 [Amox-Clav 875-125 mg Tablet] Diphenhydramine HCl [Benadryl -] 25 mg PO Q8H PRN 10/31/18 Fluoxetine HCl [Prozac -] 20 mg PO DAILY 10/31/18 Risperidone [Risperdal] 2 mg PO HS 10/31/18 Albuterol Sulfate Inhaler - 90 mcg IH PRN PRN 11/01/18 [Ventolin Hfa Inhaler -] Fenofibrate Nanocrystallized 145 mg PO DAILY 11/01/18 [Fenofibrate] Microbiology 10/31/18 22:00 Blood - Peripheral Venous Blood Culture - Final NO GROWTH AFTER 5 DAYS INCUBATION 10/31/18 22:00 Blood - Peripheral Venous Blood Culture - Final NO GROWTH AFTER 5 DAYS INCUBATION 11/01/18 11:36 Nares - Mrsa Screen - Right MRSA Screen - Final NO MRSA ISOLATED 11/01/18 11:36 Nares - Mrsa Screen - Left MRSA Screen - Final NO MRSA ISOLATED A/P: Patient is a 43 yo male with PMHx of depression , asthma, and nephrolithiasis who presented with edema of lower extremities. #Acute extensive bl LE edema with erythema continues to improve, will continue IV Zosyn , if better in am , will discuss with ID and discharge patient home on oral antibiotic. Discussed with ID since lower extremities are improving no need for MRI for now as per discussion with ID. will add Claritin to his regimen. # H/o Asthma, will continue albuterol # Psych Hx : on Prozac and Risperidone. DVT PX : Lovenox Visit type - Emergency Visit Emergency Visit: Yes ED Registration Date: 11/01/18 Care time: The patient presented to the Emergency Department on the above date and was hospitalized for further evaluation of their emergent condition. - New Patient This patient is new to me today: No - Critical Care Critical Care patient: No - Discharge Referral Referred to [facility] No
[2018-11-05] MEDS: risperiDONE 1 MG TABLET (FP) PO SCH (21:13)
[2018-11-06] MEDS ORDERED: PIPERACILLIN/TAZOBACTAM 3.375 GM VIAL IVPB ONE ×2 (01:13→10:58)
[2018-11-06] MEDS ORDERED: DEXTROSE 5%-WATER - 50 ML IVPB ONE ×2 (01:13→10:59)
[2018-11-06] MEDS: PIPERACILLIN/TAZOB 3.375 GM 3.375 GM in DEXTROSE 5%-WATER - 50 ML IVPB SCH ×2 (01:47→11:14)
--- NOTE | 2018-11-06 08:18 | PN ---
Teaching Attending Note Name of Resident: Alma Kathleen ATTENDING PHYSICIAN STATEMENT I saw and evaluated the patient. I reviewed the resident's note and discussed the case with the resident. I agree with the resident's findings and plan as documented. SUBJECTIVE: Patient is doing better with no acute distress. OBJECTIVE: Vital Signs Temperature 97.6 F 11/06/18 06:39 Pulse Rate 65 11/06/18 06:39 Respiratory Rate 20 11/06/18 06:39 Blood Pressure 124/64 11/06/18 06:39 O2 Sat by Pulse Oximetry (%) 97 11/05/18 21:00 GENERAL: AAOx3, NAD HEENT: AT/NC. EOMI. INOCENCIA. Moist mucus membranes. NECK: No JVD, LUNGS: CTA B/L HEART: RRR. Normal S1, S2. ABDOMEN: Soft, NT/ND. positive for BS. MUSCULOSKELETAL: No CVA tenderness. EXTREMITIES: 2+ pulses, No calf tenderness. 2+ pitting edema. NEUROLOGICAL: Cranial nerves II-XII intact. SKIN: Diffuse Maculopapular rash Lower extremities. improving. CBCD WBC 7.0 K/mm3 (4.0-10.0) 11/04/18 07:00 RBC 4.85 M/mm3 (4.00-5.60) 11/04/18 07:00 Hgb 14.1 GM/dL (11.7-16.9) 11/04/18 07:00 Hct 41.1 % (35.4-49) 11/04/18 07:00 MCV 84.7 fl (80-96) 11/04/18 07:00 MCHC 34.4 g/dl (32.0-35.9) 11/04/18 07:00 RDW 13.8 % (11.9-15.9) 11/04/18 07:00 Plt Count 226 K/MM3 (134-434) 11/04/18 07:00 MPV 8.6 fl (7.5-11.1) 11/04/18 07:00 CMP Sodium 139 mmol/L (136-145) 11/04/18 07:00 Potassium 3.8 mmol/L (3.5-5.1) 11/04/18 07:00 Chloride 104 mmol/L (98-107) 11/04/18 07:00 Carbon Dioxide 27 mmol/L (21-32) 11/04/18 07:00 Anion Gap 8 MMOL/L (8-16) 11/04/18 07:00 BUN 16 mg/dL (7-18) 11/04/18 07:00 Creatinine 1.2 mg/dL (0.55-1.3) 11/04/18 07:00 Creat Clearance w eGFR > 60 (>60) 11/04/18 07:00 Random Glucose 85 mg/dL (74-106) 11/04/18 07:00 Calcium 9.0 mg/dL (8.5-10.1) 11/04/18 07:00 Total Bilirubin 0.4 mg/dL (0.2-1) 11/03/18 06:30 AST 17 U/L (15-37) 11/03/18 06:30 ALT 33 U/L (13-61) 11/03/18 06:30 Alkaline Phosphatase 94 U/L (45-117) 11/03/18 06:30 Total Protein 6.6 g/dl (6.4-8.2) 11/03/18 06:30 Albumin 3.2 g/dl (3.4-5.0) L 11/03/18 06:30 Current Medications Generic Name Dose Route Start Last Admin Trade Name Freq PRN Reason Stop Dose Admin Acetaminophen 650 mg 11/01/18 02:07 Tylenol - PO Q6H PRN Fever Or Pain Level 1-5 Albuterol Sulfate 2 puff 11/03/18 17:08 Ventolin Hfa Inhaler - IH Q4H PRN SHORT OF BREATH/WHEEZING Enoxaparin Sodium 40 mg 11/01/18 10:00 11/05/18 10:05 Lovenox - SQ 40 mg DAILY [facility] Administration Fluoxetine HCl 20 mg 11/01/18 13:45 11/05/18 11:21 Prozac - PO 20 mg DAILY [facility] Administration Piperacillin Sod/Tazobactam 50 mls @ 100 mls/hr 11/01/18 10:00 11/06/18 01:47 Sod 3.375 gm/ Dextrose IVPB 100 mls/hr Q8H-IV [facility] Administration Protocol Loratadine 10 mg 11/04/18 14:15 11/05/18 10:05 Claritin - PO 10 mg DAILY [facility] Administration Multi-Ingredient Lotion 1 applic 11/03/18 11:38 11/03/18 18:35 Eucerin (Large Jar) - TP 1 applic BID PRN Administration DRY SKIN Ranitidine HCl 150 mg 11/04/18 14:15 11/05/18 10:05 Zantac - PO 150 mg DAILY [facility] Administration Risperidone 2 mg 11/01/18 22:00 11/05/18 21:13 Risperdal - PO 2 mg HS ESTRELLA Administration Home Medications Medication Instructions Recorded Amoxicillin/Potassium Clav 1 each PO Q12H 10/31/18 [Amox-Clav 875-125 mg Tablet] Diphenhydramine HCl [Benadryl -] 25 mg PO Q8H PRN 10/31/18 Fluoxetine HCl [Prozac -] 20 mg PO DAILY 10/31/18 Risperidone [Risperdal] 2 mg PO HS 10/31/18 Albuterol Sulfate Inhaler - 90 mcg IH PRN PRN 11/01/18 [Ventolin Hfa Inhaler -] Fenofibrate Nanocrystallized 145 mg PO DAILY 11/01/18 [Fenofibrate] ASSESSMENT AND PLAN: Patient is a 43 yo male with PMHx of depression , asthma, and nephrolithiasis who presented with edema of lower extremities. #Acute extensive bl LE edema with erythema improved, as per ID patient can be discharged home on Augmentin 875mg po bid with food., continue Claritin to his regimen. # H/o Asthma, will continue albuterol # Psych Hx : on Prozac and Risperidone. will discharge the patient home on Augmentin 875mg po bid x 5 days.
[2018-11-06] MEDS: RANITIDINE HCL 150 MG TABLET (FP) PO SCH (11:14)
[2018-11-06] MEDS: FLUoxetine HCL 20 MG CAPSULE (FP) PO SCH (11:15)
[2018-11-06] MEDS: ENOXAPARIN NA (PORCINE) 40 MG/0.4 ML DISP.SYRIN SQ SCH (11:15)
[2018-11-06] MEDS: LORATADINE 10 MG TABLET PO SCH (11:15)
--- NOTE | 2018-11-06 14:40 | PN ---
Progress Note, Physician History of Present Illness: Pt reports much less pain in LE b/l. Erythema improving. Able to ambulate better. - Current Medication List Current Medications: Active Medications Acetaminophen (Tylenol -) 650 mg PO Q6H PRN PRN Reason: Fever Or Pain Level 1-5 Albuterol Sulfate (Ventolin Hfa Inhaler -) 2 puff IH Q4H PRN PRN Reason: SHORT OF BREATH/WHEEZING Enoxaparin Sodium (Lovenox -) 40 mg SQ DAILY [facility] Last Admin: 11/06/18 11:15 Dose: 40 mg Fluoxetine HCl (Prozac -) 20 mg PO DAILY [facility] Last Admin: 11/06/18 11:15 Dose: 20 mg Piperacillin Sod/Tazobactam (Sod 3.375 gm/ Dextrose) 50 mls @ 100 mls/hr IVPB Q8H-IV ESTRELLA; Protocol Last Admin: 11/06/18 11:14 Dose: 100 mls/hr Loratadine (Claritin -) 10 mg PO DAILY [facility] Last Admin: 11/06/18 11:15 Dose: 10 mg Multi-Ingredient Lotion (Eucerin (Large Jar) -) 1 applic TP BID PRN PRN Reason: DRY SKIN Last Admin: 11/03/18 18:35 Dose: 1 applic Ranitidine HCl (Zantac -) 150 mg PO DAILY [facility] Last Admin: 11/06/18 11:14 Dose: 150 mg Risperidone (Risperdal -) 2 mg PO HS [facility] Last Admin: 11/05/18 21:13 Dose: 2 mg - Objective Vital Signs: Vital Signs Temperature 97.6 F 11/06/18 10:00 Pulse Rate 92 H 11/06/18 10:00 Respiratory Rate 18 11/06/18 10:00 Blood Pressure 125/75 11/06/18 10:00 O2 Sat by Pulse Oximetry (%) 97 11/05/18 21:00 Constitutional: Yes: No Distress, Calm Cardiovascular: Yes: Regular Rate and Rhythm Respiratory: Yes: Regular Gastrointestinal: Yes: Normal Bowel Sounds, Soft Extremities: Yes: Erythema (Rash resolving, less edema/ erythema b/l, + exfoliation/) Labs: CBC, BMP 11/04/18 07:00 11/04/18 07:00 Problem List - Problems (1) Cellulitis Code(s): L03.90 - CELLULITIS, UNSPECIFIED Qualifiers: Site of cellulitis: unspecified site Qualified Code(s): L03.90 - Cellulitis , unspecified Assessment/Plan b/l LE cellulitis Rash suspected allergic reaction -- edema/erythema improving slowly but still with erythema -- switch to oral antibiotics -- dermatology/allergy evaluation as outpatient
[2018-11-06] MEDS ORDERED: AMOX TR/POT CLAV 500MG/125MG TABLETS (FP) PO ONE (16:24)
--- NOTE | 2018-11-06 16:32 | DS ---
Physical Exam: SUBJECTIVE: Patient seen and examined No fevers overnight. Redness continues to improve on bilateral lower extremities. OBJECTIVE: Vital Signs Period Temp Pulse Resp BP Sys/Barr Pulse Ox Last 24 Hr 97.6 F-99.3 F 65-98 18-20 120-125/60-75 97-97 PHYSICAL EXAM GENERAL: The patient is awake, alert, and fully oriented, in no acute distress. ENT: moist mucous membranes. NECK: full range of motion, supple. LUNGS: Breath sounds equal, clear to auscultation bilaterally, no wheezes, no crackles HEART: Regular rate and rhythm, S1, S2 without murmur ABDOMEN: Soft, nontender, nondistended, normoactive bowel sounds, no guarding EXTREMITIES: 2+ pulses, warm, well-perfused, no edema, erythematous, dry scaling skin, maculopapular rashes on mid thigh and lateral legs bilaterally. No warmth NEUROLOGICAL: Cranial nerves II through XII grossly intact. Normal speech, gait not observed. IMAGING: * Doppler LE: No evidence of DVT. * ECHO: LV size, thickness, fxn are normal. LVEF is normal. LV wall motion is normal. LV filling pattern for age is normal. Moderate MR. Atrial septum is aneurysmal. Trace to mild TR. RV systolic pressure is normal. LABS Microbiology 10/31/18 22:00 Blood - Peripheral Venous Blood Culture - Final NO GROWTH AFTER 5 DAYS INCUBATION 10/31/18 22:00 Blood - Peripheral Venous Blood Culture - Final NO GROWTH AFTER 5 DAYS INCUBATION 11/01/18 11:36 Nares - Mrsa Screen - Right MRSA Screen - Final NO MRSA ISOLATED 11/01/18 11:36 Nares - Mrsa Screen - Left MRSA Screen - Final NO MRSA ISOLATED HOSPITAL COURSE: Date of Admission:11/01/18 Date of Discharge: 11/06/18 ASSESSMENT/PLAN: 43M w/ pmhx of Asthma presents with B/L LE Swelling + erythema. Patient sx's have worsened since onset, and patient mentions he has not improved since starting Augmentin. #LE Swelling + Erythema; Pt was treated for cellulitis superimposed on an allergic rash with zosyn, ranitidine and claritin. He had bilateral pedal edema and had ECHO done that R/O CHF. - He was discharged home on PO augmentin for 5 days to follow up as an outpatient with derm, If necessary, skin biopsy may be done in office after discharge. -Eucerin cream PRN #Hx of Asthma -Ventolin PRN #Hx of psychiatric illness Cont home meds: -Risperdal 2 mg PO HS -Prozac 20 mg PO QD Pt was discharged home Minutes to complete discharge: 35 Discharge Summary Reason For Visit: CELLULITIS Current Active Problems Cellulitis (Acute) Maculopapular rash, generalized (Acute) Condition: Improved - Instructions Diet, Activity, Other Instructions: You were seen in the hospital for complaints of a skin rash. In the hospital, you were seen by an infectious disease doctor and were given antibiotics for likely infection of your skin rash. Your rash improved but may be part of an allergic reaction. You are being discharged home to follow up with a skin doctor (meter repairer helper) for further evaluation of the rash. MEDICAL RECOMMENDATIONS Please continue all your home medications as directed. Please take antibiotics for the next 5 days: Augmentin 875mg bid We have added medications to help you with allergy- ranitidine and claritin, take them daily as prescribed CONSULT RECOMMENDATIONS Please follow up with your primary care physician, Dr. Velasquez, within 1 week. Please follow up with your infectious disease doctor, Dr. Juan, within 1 week. Please follow up with your meter repairer helper, Dr. Malik, within 1-2 weeks. You may need a skin biopy to be done in the outpatient office for further evaluation of your rash. If you experiencing worsening skin rash, throat swelling, difficulty eating or breathing, chest pain, shortness of breath or other associated symptoms, please proceed to your nearest emergency room immediately. Referrals: Nuvia Velasquez MD [Primary Care Provider] - 1 Week gAgie Malik MD [Staff Physician] - 1 Week (Please call to make an appointment for likely skin biopsy ) Disposition: HOME - Home Medications Comprehensive Discharge Medication List: Ambulatory Orders Amoxicillin/Potassium Clav [Amox-Clav 875-125 mg Tablet] 1 each PO Q12H Fluoxetine HCl [Prozac -] 20 mg PO DAILY 10/31/18 Risperidone [Risperdal] 2 mg PO HS 10/31/18 Albuterol Sulfate Inhaler - [Ventolin HFA Inhaler -] 90 mcg IH PRN PRN 11/01/18 Fenofibrate Nanocrystallized [Fenofibrate] 145 mg PO DAILY 11/01/18 Amox-Tr/K Cl [Augmentin 875-125mg Tablet -] 1 tab PO BID@0800,1730 #10 tablet Loratadine [Claritin -] 10 mg PO DAILY #30 tablet 11/06/18 Mineral Oil/Petrolat,Wht/Water [Eucerin (Large Jar) -] 1 applic TP BID PRN jar 11/06/18 Ranitidine [Zantac -] 150 mg PO DAILY #30 tablet 11/06/18 This patient is new to me today: No Emergency Visit: Yes ED Registration Date: 11/01/18 Care time: The patient presented to the Emergency Department on the above date and was hospitalized for further evaluation of their emergent condition. Critical Care patient: No - Discharge Referral Referred to [facility] Med P.C.: No
[2018-11-06] MEDS ORDERED: AMOX TR/POT CLAV 875MG/125MG TABLETS (FP) PO ONE (16:45)
[2018-11-06 17:10] VITALS: BP 126/75; PULSE 116; TEMP 98.4
[2018-11-06] MEDS ORDERED: AMOX TR/POT CLAV 875MG/125MG TABLETS (FP) PO SCH (17:30)
== END 2018-11-06 18:40 | disposition home or self-care (01) | DRG 383 ==
LOC: JER 19:41 → JERBED 11-01 00:30 → OBSVTOIN 11-01 01:27 → J8W 11-01 03:41
PROVIDERS: ADMIT Internal Medicine; ATTEND Internal Medicine
DX: L03.115 Cellulitis of right lower limb (principal); L03.116 Cellulitis of left lower limb; J45.909 Unspecified asthma, uncomplicated; E66.9 Obesity, unspecified; Z68.34 Body mass index [BMI] 34.0-34.9, adult; L25.9 Unspecified contact dermatitis, unspecified cause; F32.9 Major depressive disorder, single episode, unspecified
CPT/HCPCS: 36415; 80048; 80053; 83036; 83605; 83735; 84100; 85025; 85027; 87040; 87081; 93005; 93010; 93306-TC; 93970-TC; 97116-GP; 97161-GP; 99284-25; G0378; J2794

== ENCOUNTER 2025-01-05 10:46 | Emergency (ER) | payer OTHER ==
[2025-01-05 10:54] VITALS: BP 114/66; PULSE 79; RESP 18; TEMP 97.9; BMI 32.1
[2025-01-05] MEDS ORDERED: ACETAMINOPHEN 500 MG TABLET (FP) ONE (11:53)
[2025-01-05] MEDS ORDERED: guaiFENesin/D-METHORPHAN HB 10 ML UNIT-DOSE CUPS ONE (11:53)
[2025-01-05] MEDS: ACETAMINOPHEN 500 MG TABLET (FP) PO ONE (11:56)
[2025-01-05] MEDS: guaiFENesin/D-METHORPHAN HB 10 ML UNIT-DOSE CUPS PO ONE (11:56)
[2025-01-05 13:05] LABS: HIV INTERPRETATION NEGATIVE (NEGATIVE)
== END 2025-01-05 13:18 | disposition home or self-care (01) ==
LOC: JER 10:46 → JERFT 10:46
DX: J22 Unspecified acute lower respiratory infection (principal); R05.9 Cough, unspecified; Z20.822 Contact with and (suspected) exposure to COVID-19
CPT/HCPCS: 0241U-QW; 36415; 86803; 87389; 87651; 99283-25